=== PATIENT | male | born 1930 | race Caucasian/White ===

== ENCOUNTER 2016-08-30 12:47 | Inpatient (IN) | payer MEDICARE ==
--- NOTE | 2016-08-30 14:09 | RAD ---
HISTORY: Difficulty breathing COMPARISONS: August 14, 2016 VIEWS: 2: Frontal dual-energy and lateral views of the chest. FINDINGS: CARDIOMEDIASTINAL SILHOUETTE: The cardiothymic cells silhouette is stable. CURT: The curt are normal. PLEURA: There is a large right pleural effusion, somewhat increased from the August 14, 2016 examination. Pleural calcifications are noted. LUNG PARENCHYMA: There is confluent alveolar opacification of the right lung base ABDOMEN: The upper abdomen is clear. There is no subphrenic gas. BONES AND SOFT TISSUES: The patient is status post median sternotomy OTHER: None. IMPRESSION: 1. LARGE RIGHT PLEURAL EFFUSION WITH RIGHT BASILAR ATELECTASIS VERSUS CONSOLIDATION. 2. PLEURAL CALCIFICATIONS.
[2016-08-30 14:25] LABS: Hematocrit 43 % (42-52); Hemoglobin 13.8 g/dl (14.0-18.0); Mean Corpuscular HGB Conc 32 g/dl (31-36); Mean Corpuscular Hemoglobin 28 pg (27-31); Mean Corpuscular Volume 88 fL (80-94); Mean Platelet Volume 9 um3 (7.4-10.4); Red Cell Distribution Width 16 % (10.5-15); White Blood Count 4.7 10^3/ul (3.5-10.8)
[2016-08-30 14:41] LABS: Albumin 3.7 g/dL (3.2-5.2); BUN/Creatinine Ratio 17.5 (8-20); Calcium 9.3 mg/dL (8.6-10.3); EGFR African American 73.8 (>60); EGFR Non-African American 57.4 (>60); Globulin 3.7 g/dL (2-4); Potassium 3.9 mmol/L (3.5-5.0); Total Bilirubin 0.5 mg/dL (0.2-1.0); Total Protein 7.4 g/dL (6.4-8.9)
[2016-08-30 14:43] LABS: Troponin I 0.01 ng/mL (<0.04)
[2016-08-30 17:16] LABS: TSH (Thyroid Stimulating Horm) 1.54 mcIU/mL (0.34-5.60)
--- NOTE | 2016-08-30 17:33 | ED ---
Terra Gonzalez Anna, scribed for Waqas Cisneros MD on 08/30/16 at 1409 . Shortness of Breath - HPI Summary HPI Summary: Patient is an 85-year-old male coming to [facility] presenting with a gradual onset of worsening SOB that began a month ago. The patient is not passing out from SOB. He can walk short distances. The patients daughter said he is normally a very busy person but is unable to perform his normal range of activities. SOB is mostly when ambulating. He takes oxygen at night but during the day is fine. He had a recent follow up with corporate specialist, which included an XR of the chest that showed more fluid. He went to the doctor today and had blood work done, and they recommended that following the results of the CXR, he should come to the ED. Denies cough, fever, CP, jaw pain, edema, shoulder pain, back pain. No signs of PNA. Had some pain in shoulders the other day, but that was spontaneously resolved. Patient takes Jantoven for blood thinning. Prior records reviewed. 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 He had a thoracentesis in 12/2015 and 300 CCs were removed. CTA chest 05/2015 with no significant findings. US Gallbladder shows gallstones. Consultation Dr. Rosas 10/2014 was for chest pain and arrhythmia. He has a history of atrial fibrillation. Cardiac catheterization 2011 showed some mild irregularities. History of severe stenosis via echocardiogram. History of aortic valve replacement. Echocardiogram 2014 showed EF of 40-45%. - History of Current Complaint Chief Complaint: EDShortnessOfBreath Time Seen by Provider: 08/30/16 13:37 Hx Obtained From: Patient, Family/Cloth Examiner Hand - accompanied by daughter - Allergy/Home Medications Allergies/Adverse Reactions: Allergies Allergy/AdvReac Type Severity Reaction Status Date / Time Aspirin Allergy GI Upset Verified 12/29/15 13:14 Hydrocodone Allergy Hallucinati Verified 12/29/15 13:14 ons Lisinopril Allergy See Comment Verified 12/29/15 13:14 PMH/Surg Hx/FS Hx/Imm Hx Endocrine/Hematology History: Denies: Hx Diabetes Cardiovascular History: Reports: Hx Angina, Hx Hypertension, Hx Valvular Heart Disease - aortic valve replacement, Other Cardiovascular Problems/Disorders - valve replacement Denies: Hx Congestive Heart Failure, Hx Coronary Artery Disease, Hx Hypercholesterolemia, Hx Myocardial Infarction Respiratory History: Denies: Hx Asthma, Hx Chronic Obstructive Pulmonary Disease (COPD) History: Denies: Hx Dialysis, Hx Renal Disease Sensory History: Reports: Hx Hearing Aid - bilateral - Surgical History Surgery Procedure, Year, and Place: valve replacement-2011 Infectious Disease History: No Infectious Disease History: Denies: Traveled Outside the [place] in Last 30 Days - Family History Known Family History: Positive: Hypertension - Social History Occupation: Retired Lives: Alone Alcohol Use: Rare Substance Use Type: Reports: None Smoking Status (MU): Former Smoker Type: Pipe Review of Systems Positive: Shortness Of Breath Positive: Arthralgia - shoulder pain, resolved All Other Systems Reviewed And Are Negative: Yes Physical Exam - Summary Physical Exam Summary: General: Comfortable, pleasant, alert, cooperative HEENT: Moist mucosa, pupils equal Neck: soft, supple, no adenopathy, no edema Heart: S1, S2, RRR, 3/6 systolic murmur, no rubs, or gallops Lungs: Diminished breath sounds right base, otherwise good air movement throughout Abdominal: Softly distended but nontender Extremities: No edema, no calf tenderness Neuro: Alert and oriented x 3 Psych: Logical, coherent Triage Information Reviewed: Yes Vital Signs On Initial Exam: Initial Vitals Temp Pulse Resp BP Pulse Ox 97.0 F 76 16 138/79 95 08/30/16 13:01 08/30/16 13:01 08/30/16 13:01 08/30/16 13:01 08/30/16 13:01 Vital Signs Reviewed: Yes Diagnostics - Vital Signs Vital Signs Temp Pulse Resp BP Pulse Ox 08/30/16 13:01 97.0 F 76 16 138/79 95 - Laboratory Lab Results: Lab Results 08/30/16 08/30/16 08/30/16 Range/Units 13:32 13:32 13:32 WBC 4.7 (3.5-10.8) 10^3/ul RBC 4.90 (4.0-5.4) 10^6/ul Hgb 13.8 L (14.0-18.0) g/dl Hct 43 (42-52) % MCV 88 (80-94) fL MCH 28 (27-31) pg MCHC 32 (31-36) g/dl RDW 16 H (10.5-15) % Plt Count 248 (150-450) 10^3/ul MPV 9 (7.4-10.4) um3 Neut % (Auto) 54.1 (38-83) % Lymph % (Auto) 20.8 L (25-47) % [place] % (Auto) 19.2 H (1-9) % Eos % (Auto) 4.0 (0-6) % Baso % (Auto) 1.9 (0-2) % Absolute Neuts (auto) 2.5 (1.5-7.7) 10^3/ul Absolute Lymphs (auto) 1.0 (1.0-4.8) 10^3/ul Absolute Monos (auto) 0.9 H (0-0.8) 10^3/ul Absolute Eos (auto) 0.2 (0-0.6) 10^3/ul Absolute Basos (auto) 0.1 (0-0.2) 10^3/ul Absolute Nucleated RBC 0.01 10^3/ul Nucleated RBC % 0.1 INR (Anticoag Therapy) (0.89-1.11) Sodium 136 (133-145) mmol/L Potassium 3.9 (3.5-5.0) mmol/L Chloride 105 (101-111) mmol/L Carbon Dioxide 26 (22-32) mmol/L Anion Gap 5 (2-11) mmol/L BUN 21 (6-24) mg/dL Creatinine 1.20 H (0.67-1.17) mg/dL Est GFR ( Amer) 73.8 (>60) Est GFR (Non-Af Amer) 57.4 (>60) BUN/Creatinine Ratio 17.5 (8-20) Glucose 126 H (70-100) mg/dL Lactic Acid 2.0 (0.5-2.0) mmol/L Calcium 9.3 (8.6-10.3) mg/dL Total Bilirubin 0.50 (0.2-1.0) mg/dL AST 23 (13-39) U/L ALT 15 (7-52) U/L Alkaline Phosphatase 92 (34-104) U/L Troponin I 0.01 (<0.04) ng/mL B-Natriuretic Peptide ( - 100) pg/mL Total Protein 7.4 (6.4-8.9) g/dL Albumin 3.7 (3.2-5.2) g/dL Globulin 3.7 (2-4) g/dL Albumin/Globulin Ratio 1.0 (1-3) TSH 1.54 (0.34-5.60) mcIU/mL 08/30/16 08/30/16 Range/Units 13:32 13:32 WBC (3.5-10.8) 10^3/ul RBC (4.0-5.4) 10^6/ul Hgb (14.0-18.0) g/dl Hct (42-52) % MCV (80-94) fL MCH (27-31) pg MCHC (31-36) g/dl RDW (10.5-15) % Plt Count (150-450) 10^3/ul MPV (7.4-10.4) um3 Neut % (Auto) (38-83) % Lymph % (Auto) (25-47) % [place] % (Auto) (1-9) % Eos % (Auto) (0-6) % Baso % (Auto) (0-2) % Absolute Neuts (auto) (1.5-7.7) 10^3/ul Absolute Lymphs (auto) (1.0-4.8) 10^3/ul Absolute Monos (auto) (0-0.8) 10^3/ul Absolute Eos (auto) (0-0.6) 10^3/ul Absolute Basos (auto) (0-0.2) 10^3/ul Absolute Nucleated RBC 10^3/ul Nucleated RBC % INR (Anticoag Therapy) 2.83 H (0.89-1.11) Sodium (133-145) mmol/L Potassium (3.5-5.0) mmol/L Chloride (101-111) mmol/L Carbon Dioxide (22-32) mmol/L Anion Gap (2-11) mmol/L BUN (6-24) mg/dL Creatinine (0.67-1.17) mg/dL Est GFR ( Amer) (>60) Est GFR (Non-Af Amer) (>60) BUN/Creatinine Ratio (8-20) Glucose (70-100) mg/dL Lactic Acid (0.5-2.0) mmol/L Calcium (8.6-10.3) mg/dL Total Bilirubin (0.2-1.0) mg/dL AST (13-39) U/L ALT (7-52) U/L Alkaline Phosphatase (34-104) U/L Troponin I (<0.04) ng/mL B-Natriuretic Peptide 67 ( - 100) pg/mL Total Protein (6.4-8.9) g/dL Albumin (3.2-5.2) g/dL Globulin (2-4) g/dL Albumin/Globulin Ratio (1-3) TSH (0.34-5.60) mcIU/mL Result Diagrams: 08/30/16 13:32 08/30/16 13:32 Lab Statement: Any lab studies that have been ordered have been reviewed, and results considered in the medical decision making process. - Radiology CXR Xray Interpretation: Positive (See Comments) Radiology Interpretation Completed By: Radiologist - IMPRESSION: 1. LARGE RIGHT PLEURAL EFFUSION WITH RIGHT BASILAR ATELECTASIS VERSUS CONSOLIDATION. 2. PLEURAL CALCIFICATIONS. - EKG 12:53 Cardiac Rate: NL - 75 bpm EKG Rhythm: Sinus Rhythm ST Segment: Normal Course/Dx - Course Assessment/Plan: History of atrial fibrillation, valve replacement, pleural effusion, and over the past three weeks worsening dyspnea on exertion Etiology points to pleural effusion and fluid buildup again. On Coumadin. We will likely need to reverse INR or at least make sure INR is below 1.5 before thoracentesis. Not in any stress. Quite symptomatic at home and unable to perform usual tasks. - Diagnoses Differential Diagnosis/HQI/PQRI: Positive: COPD Exacerbation, DC, Pneumonia, Pneumothorax Provider Diagnoses: SOB (shortness of breath), Pleural effusion - Physician Notifications Discussed Care of Patient With: Dr. Guzman (hospitalist) at 14:09. Agrees to admit. Discharge - Discharge Plan Condition: Guarded Disposition: ADMITTED TO [facility] documentation as recorded by the Terra chakraborty Anna accurately reflects the service I personally performed and the decisions made by , Waqas Cisneros MD.
[2016-08-30] MEDS: Atorvastatin* 10 MG TAB PO SCH (17:56)
[2016-08-30] MEDS ORDERED: Simvastatin TAB(NF) 20 MG TAB PO SCH (18:00)
--- NOTE | 2016-08-30 22:40 | HP ---
HISTORY AND PHYSICAL: DATE OF ADMISSION: 08/30/16 PROVIDER: Licha Pascal NP ATTENDING PHYSICIAN: Dr. Hung *(report dictated by Licha Pascal NP) PRIMARY CARE PROVIDER: Dr. Sauceda. AUTO GLASS TECHNICIAN: Dr. Dumont. DIVISION DIRECTOR: Dr. Ayon. CHIEF COMPLAINT: Shortness of breath. HISTORY OF PRESENT ILLNESS: Mr. Beckett is an 85-year-old male with a past medical history of pleural effusion, status post thoracentesis x2 in 2016, which has been ruled out for malignancy; atrial fibrillation, on Coumadin; bioprosthetic aortic valve replacement; coronary artery disease; obstructive sleep apnea; and xetsmrck-ov-bbvete aortic stenosis who presents to the emergency department today with report of increasing shortness of breath over the past 6 to 8 weeks. Mr. Beckett is accompanied to the emergency department with his daughter, Sylwia, who is the healthcare proxy. Both the patient and the daughter report that he has had a slow progression of increased shortness of breath over the past month to 2 months. He is followed by Dr. Dumont, cartridge filler, and underwent a chest x-ray 2 weeks ago and was told at that time , there was no plan for thoracentesis at that time, but if he were to become shortness of breath, he should come to the emergency department. The patient reports over the past couple of days especially he feels that his activity is limited due to his shortness of breath. He denies chest pain. No orthopnea or lower extremity swelling. Denies cough. No chills, fevers, rigors. Reports good appetite and denies nausea, vomiting, diarrhea, abdominal pain. Denies any recent illnesses and reports other than this increase in shortness of breath, he has been in his normal state of health which he reports to be very active. In the emergency department, he is found to have a large right pleural effusion with right basilar atelectasis versus consolidation and pleural calcifications, which appears to be consistent with his prior chest x-rays; however, the effusion appears to be larger today. The patient is oxygenating well on room air. Does not appear to be in any acute distress. PAST MEDICAL HISTORY: 1. AFib, on Coumadin. 2. Aortic valve replacement bioprosthetic, 2011. 3. Jlavaolp-gh-ttkzmt aortic stenosis. 4. History of pleural plaques and effusions in the right lower lung, status post 2 thoracentesis in 2016 in which the cytology was negative for malignancy and showed inflammation only. 5. Hypertension. 6. Hyperlipidemia. 7. Chronic kidney disease. 8. Obstructive sleep apnea, on CPAP and oxygen at night. 9. Coronary artery disease. 10. History of neutropenia. 11. Hypothyroidism. HOME MEDICATIONS: 1. Coumadin 2 mg p.o. daily. 2. Vitamin B6 100 mg p.o. daily. 3. Flomax 0.4 mg p.o. daily. 4. Spironolactone/HCTZ 25/25 half a tablet daily. 5. Simvastatin 25 mg p.o. daily. 6. Fish oil 1000 mg p.o. daily. 7. Multivitamin 1 tab p.o. daily. 8. Metoprolol succinate 25 mg p.o. daily. 9. Synthroid 88 mcg p.o. daily. 10. Vitamin B12 500 mcg p.o. daily. 11. Calcium-D 1 tab p.o. b.i.d. ALLERGIES: ASPIRIN, HYDROCODONE, LISINOPRIL. FAMILY HISTORY: Father has a history of coronary artery disease. Type 2 diabetes in both mother and 3 siblings. SOCIAL HISTORY: Former smoker, smoking a pipe for he reports "a couple years." Occasional alcohol use. 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 He is and lives alone. He has 3 children. His daughter, Sylwia Beckett, is the healthcare proxy, number [phone]. REVIEW OF SYSTEMS: A 14-point review of systems was performed. All the pertinent positives and negatives are mentioned in the history of present illness. All the remaining systems are negative. PHYSICAL EXAMINATION GENERAL APPEARANCE: Alert and oriented x3, 85-year-old male, sitting in the emergency department stretcher, in no acute distress. Appropriate to situation. Hard of hearing. VITAL SIGNS: Temperature 97.0, heart rate 76, respirations 16, O2 sat 95% on room air, blood pressure 138/79. HEENT: Head is normocephalic, atraumatic. Pupils are equal and reactive to light. Oropharynx is clear. Moist mucous membranes. Hearing aid noted in left ear. NECK: Supple. No cervical or supraclavicular lymphadenopathy. RESPIRATORY: No accessory muscle use. Right lower lobe is diminished. Good aeration throughout otherwise. CARDIAC: S1, S2. No murmurs, rubs, or gallops appreciated. No lower extremity edema noted. 1+ DP pulses bilaterally. ABDOMEN: Distended, obese, soft, nontender. Normal bowel sounds x4. EXTREMITIES: Full range of motion in all extremities. Strength is 5/5 throughout. NEUROLOGIC: Cranial nerves II through XII are grossly intact. Sensation to lower extremities intact to light touch. PSYCH: Alert and oriented x3, appropriate to situation. LABORATORY DATA AND DIAGNOSTIC STUDIES: WBC is 4.7, RBC 4.90, Hgb 13.8, Hct 43 , MCV 88, MCH 28, MCHC 32, RDW 16, platelet count 248. INR 2.83. Sodium 136, potassium 3.9, chloride 105, carbon dioxide 26, anion gap 5, BUN 21, creatinine 1.20, glucose 126, lactic acid 2.0, calcium 9.3, total bilirubin 0.50, AST 23, ALT 15, alkaline phosphatase 92, troponin 0.01, total protein 7.4, albumin 3.7. Chest x-ray impression: 1. Large right pleural effusion with right basilar atelectasis versus consolidation. 2. Pleural calcification. EKG: Sinus rhythm with a rate of 75. In comparison to prior EKG, no acute ST changes noted. ASSESSMENT AND PLAN: Mr. Beckett is an 85-year-old male with a past medical history of recurrent right lower pleural effusion; atrial fibrillation, on Coumadin; aortic bioprosthetic valve, yylmtjwo-uc-wrnfqy aortic stenosis; chronic kidney disease; history of coronary artery disease; and obstructive sleep apnea who presents to the emergency department today with report of increasing shortness of breath over the past 1 to 2 months, worse over the last couple of days. 1. Shortness of breath. I suspect this is all secondary to right lower pleural effusion, which appears to be larger today on chest x-ray compared to the chest x- ray obtained 2 weeks ago. Plan is to hold Coumadin as INR is 2.83 , give vitamin K 2.5 mg and monitor INR. I spoke to Dr. Dumont, cartridge filler, who also follow the patient as an outpatient. She is away on vacation and asked Dr. Thurston be contacted. Plan to monitor for respiratory decompensation. At this time, the patient is on room air, appear very mildly dyspneic with exertion. Low suspicion for pneumonia or acute coronary syndrome. 2. Atrial fibrillation, on Coumadin. Currently, the patient is in sinus rhythm in the emergency department. I plan to continue the patient's home medications of metoprolol. Hold Coumadin as discussed above. The patient does not need to be bridged as he has no history of cerebrovascular accident in the past. 3. Hypertension, within normal limits. Controlled on home medication. Continue metoprolol and spironolactone/hydrochlorothiazide. 4. Hypothyroidism. Continue Synthroid. 5. Obstructive sleep apnea. Continue CPAP. 6. DVT prophylaxis. INR therapeutic on Coumadin. Plan to hold anticoagulation with a plan for thoracentesis. Encourage ambulation. 7. Code status. DNR. MOLST has been filled out and is on the chart. The daughter, Sylwia Beckett, is the healthcare proxy, . TIME SPENT: Approximately 60 minutes were spent on this admission. This case was discussed with attending physician, Dr. Hung, who agrees with the plan of care. LICHA PASCAL NP CC: Dr. Sauceda; Dr. Dumont * [phone]/[facility] [place] #: [id number] MTDD
[2016-08-31 06:44] LABS: Hematocrit 43 % (42-52); Mean Corpuscular HGB Conc 33 g/dl (31-36); Mean Corpuscular Hemoglobin 29 pg (27-31); Mean Corpuscular Volume 87 fL (80-94); Mean Platelet Volume 8 um3 (7.4-10.4); Red Blood Count 4.89 10^6/ul (4.0-5.4); Red Cell Distribution Width 15 % (10.5-15); White Blood Count 4.9 10^3/ul (3.5-10.8)
[2016-08-31 06:53] LABS: BUN/Creatinine Ratio 19.5 (8-20); Calcium 9.1 mg/dL (8.6-10.3); EGFR African American 79.1 (>60); EGFR Non-African American 61.5 (>60); Potassium 3.9 mmol/L (3.5-5.0)
[2016-08-31] MEDS: Levothyroxine TAB* 88 MCG TAB PO SCH (07:09)
[2016-08-31] MEDS: Spironolactone/HCTZ 25-25 MG* 1 TAB PO SCH (07:56)
[2016-08-31] MEDS: Metoprolol Succinate XL TAB* 25 MG PO SCH (07:57)
[2016-08-31] MEDS: Tamsulosin CAP* 0.4 MG PO SCH (07:57)
[2016-08-31] MEDS: Cyanocobalamin TAB* 500 MCG PO SCH (07:57)
--- NOTE | 2016-08-31 15:05 | PN ---
Subjective Date of Service: 08/31/16 Interval History: Patient says he is still sob. More so than usual. Objective Active Medications: Atorvastatin Calcium (Lipitor*) 10 mg PO QPM [facility] Last Admin: 08/30/16 17:56 Dose: 10 mg Cyanocobalamin (Vitamin B12 Tab*) 500 mcg PO DAILY [facility] Last Admin: 08/31/16 07:57 Dose: 500 mcg HCTZ/Spironolactone (Aldactazide 25-25*) 0.5 tab PO DAILY [facility] Last Admin: 08/31/16 07:56 Dose: 0.5 tab Levothyroxine Sodium (Synthroid Tab*) 88 mcg PO DAILY@0600 [facility] Last Admin: 08/31/16 07:09 Dose: 88 mcg Metoprolol Succinate (Toprol Xl Tab*) 25 mg PO DAILY [facility] Last Admin: 08/31/16 07:57 Dose: 25 mg Tamsulosin HCl (Flomax Cap*) 0.4 mg PO DAILY [facility] Last Admin: 08/31/16 07:57 Dose: 0.4 mg Vital Signs 08/30/16 08/30/16 08/30/16 17:13 17:35 18:06 Temperature 97.8 F 97.8 F Pulse Rate 80 78 Respiratory 20 20 20 Rate Blood Pressure 146/66 146/66 (mmHg) O2 Sat by Pulse 94 94 Oximetry 08/30/16 08/30/16 08/30/16 19:29 20:20 21:00 Temperature 97.7 F 97.4 F Pulse Rate 79 68 Respiratory 16 20 15 Rate Blood Pressure 116/75 108/63 (mmHg) O2 Sat by Pulse 95 99 Oximetry 08/31/16 08/31/16 08/31/16 02:59 07:15 08:00 Temperature 97.3 F Pulse Rate 66 68 Respiratory 16 18 18 Rate Blood Pressure 140/66 130/81 (mmHg) O2 Sat by Pulse 97 96 Oximetry 08/31/16 11:13 Temperature 97.5 F Pulse Rate 80 Respiratory Rate Blood Pressure 107/55 (mmHg) O2 Sat by Pulse 94 Oximetry Oxygen Devices in Use Now: None Appearance: Elderly gentleman sitting up in bed in NAD Eyes: No Scleral Icterus Ears/Nose/Mouth/Throat: Mucous Membranes Moist Neck: No Thyroid Enlargement, Masses Respiratory: - - Decreased breath sounds Cardiovascular: - - S1S2 robert Abdominal: NL Sounds; No Tenderness; No Distention, No Hepatosplenomegaly Lymphatic: No Cervical Adenopathy Extremities: No Clubbing, Cyanosis Skin: No Rash or Ulcers Neurological: Alert and Oriented x 3 Result Diagrams: 08/31/16 06:30 08/31/16 06:30 Additional Lab and Data: Lab Results 08/30/16 08/30/16 08/30/16 Range/Units 13:32 13:32 13:32 WBC 4.7 (3.5-10.8) 10^3/ul RBC 4.90 (4.0-5.4) 10^6/ul Hgb 13.8 L (14.0-18.0) g/dl Hct 43 (42-52) % MCV 88 (80-94) fL MCH 28 (27-31) pg MCHC 32 (31-36) g/dl RDW 16 H (10.5-15) % Plt Count 248 (150-450) 10^3/ul MPV 9 (7.4-10.4) um3 Neut % (Auto) 54.1 (38-83) % Lymph % (Auto) 20.8 L (25-47) % [place] % (Auto) 19.2 H (1-9) % Eos % (Auto) 4.0 (0-6) % Baso % (Auto) 1.9 (0-2) % Absolute Neuts (auto) 2.5 (1.5-7.7) 10^3/ul Absolute Lymphs (auto) 1.0 (1.0-4.8) 10^3/ul Absolute Monos (auto) 0.9 H (0-0.8) 10^3/ul Absolute Eos (auto) 0.2 (0-0.6) 10^3/ul Absolute Basos (auto) 0.1 (0-0.2) 10^3/ul Absolute Nucleated RBC 0.01 10^3/ul Nucleated RBC % 0.1 INR (Anticoag Therapy) (0.89-1.11) Sodium 136 (133-145) mmol/L Potassium 3.9 (3.5-5.0) mmol/L Chloride 105 (101-111) mmol/L Carbon Dioxide 26 (22-32) mmol/L Anion Gap 5 (2-11) mmol/L BUN 21 (6-24) mg/dL Creatinine 1.20 H (0.67-1.17) mg/dL Est GFR ( Amer) 73.8 (>60) Est GFR (Non-Af Amer) 57.4 (>60) BUN/Creatinine Ratio 17.5 (8-20) Glucose 126 H (70-100) mg/dL Lactic Acid 2.0 (0.5-2.0) mmol/L Calcium 9.3 (8.6-10.3) mg/dL Total Bilirubin 0.50 (0.2-1.0) mg/dL AST 23 (13-39) U/L ALT 15 (7-52) U/L Alkaline Phosphatase 92 (34-104) U/L Troponin I 0.01 (<0.04) ng/mL B-Natriuretic Peptide ( - 100) pg/mL Total Protein 7.4 (6.4-8.9) g/dL Albumin 3.7 (3.2-5.2) g/dL Globulin 3.7 (2-4) g/dL Albumin/Globulin Ratio 1.0 (1-3) TSH 1.54 (0.34-5.60) mcIU/mL 08/30/16 08/30/16 Range/Units 13:32 13:32 WBC (3.5-10.8) 10^3/ul RBC (4.0-5.4) 10^6/ul Hgb (14.0-18.0) g/dl Hct (42-52) % MCV (80-94) fL MCH (27-31) pg MCHC (31-36) g/dl RDW (10.5-15) % Plt Count (150-450) 10^3/ul MPV (7.4-10.4) um3 Neut % (Auto) (38-83) % Lymph % (Auto) (25-47) % [place] % (Auto) (1-9) % Eos % (Auto) (0-6) % Baso % (Auto) (0-2) % Absolute Neuts (auto) (1.5-7.7) 10^3/ul Absolute Lymphs (auto) (1.0-4.8) 10^3/ul Absolute Monos (auto) (0-0.8) 10^3/ul Absolute Eos (auto) (0-0.6) 10^3/ul Absolute Basos (auto) (0-0.2) 10^3/ul Absolute Nucleated RBC 10^3/ul Nucleated RBC % INR (Anticoag Therapy) 2.83 H (0.89-1.11) Sodium (133-145) mmol/L Potassium (3.5-5.0) mmol/L Chloride (101-111) mmol/L Carbon Dioxide (22-32) mmol/L Anion Gap (2-11) mmol/L BUN (6-24) mg/dL Creatinine (0.67-1.17) mg/dL Est GFR ( Amer) (>60) Est GFR (Non-Af Amer) (>60) BUN/Creatinine Ratio (8-20) Glucose (70-100) mg/dL Lactic Acid (0.5-2.0) mmol/L Calcium (8.6-10.3) mg/dL Total Bilirubin (0.2-1.0) mg/dL AST (13-39) U/L ALT (7-52) U/L Alkaline Phosphatase (34-104) U/L Troponin I (<0.04) ng/mL B-Natriuretic Peptide 67 ( - 100) pg/mL Total Protein (6.4-8.9) g/dL Albumin (3.2-5.2) g/dL Globulin (2-4) g/dL Albumin/Globulin Ratio (1-3) TSH (0.34-5.60) mcIU/mL Assess/Plan/Problems-Billing Assessment: 85 year old with know pleural effusion who presents with worsening sob and interval worsening of effusion here for monitoring and thoracentesis, - Patient Problems (1) Pleural effusion Current Visit: Yes Status: Acute Code(s): J90 - PLEURAL EFFUSION, NOT ELSEWHERE CLASSIFIED SNOMED Code(s): 52984951 Comment: Patient here for thoracentesis. Unfortunately his INR is too high and he will have to wait for the availabity of either pulmonary or IR (neither of whom are available now). (2) Atrial fibrillation Current Visit: Yes Status: Acute Code(s): I48.91 - UNSPECIFIED ATRIAL FIBRILLATION SNOMED Code(s): 50519662 Comment: Will need to reverse INR. Give Vit K. (3) Hypothyroid Current Visit: Yes Status: Acute Code(s): E03.9 - HYPOTHYROIDISM, UNSPECIFIED SNOMED Code(s): 37944239 Comment: Stable. Continue synthroid. (4) DVT prophylaxis Current Visit: Yes Status: Acute Code(s): XUZ2002 - SNOMED Code(s): 226289193 (5) HTN (hypertension) Current Visit: No Status: Chronic Code(s): I10 - ESSENTIAL (PRIMARY) HYPERTENSION SNOMED Code(s): 35473596 Comment: Adequate control. Continue current meds. (6) DNR (do not resuscitate) Current Visit: Yes Status: Acute
[2016-08-31] MEDS ORDERED: Phytonadione Oral Solution* 5 MG/25 ML UDC PO ONE (15:35)
[2016-08-31] MEDS: Atorvastatin* 10 MG TAB PO SCH (17:27)
[2016-09-01] MEDS: Levothyroxine TAB* 88 MCG TAB PO SCH (06:20)
[2016-09-01] MEDS: Metoprolol Succinate XL TAB* 25 MG PO SCH (09:31)
[2016-09-01] MEDS: Tamsulosin CAP* 0.4 MG PO SCH (09:32)
[2016-09-01] MEDS: Spironolactone/HCTZ 25-25 MG* 1 TAB PO SCH (09:32)
[2016-09-01] MEDS: Cyanocobalamin TAB* 500 MCG PO SCH (09:32)
--- NOTE | 2016-09-01 12:29 | PN ---
Subjective Date of Service: 09/01/16 Interval History: Patient seen this afternoon. Reports feeling the same, still a bit SOB. Seems to be maintaining O2 sat. Says he is not clear why he gets these effusions. Family History: Unchanged from Admission Social History: Unchanged from Admission Past Medical History: Unchanged from Admission Objective Active Medications: Atorvastatin Calcium (Lipitor*) 10 mg PO QPM [facility] Last Admin: 08/31/16 17:27 Dose: 10 mg Cyanocobalamin (Vitamin B12 Tab*) 500 mcg PO DAILY [facility] Last Admin: 09/01/16 09:32 Dose: 500 mcg HCTZ/Spironolactone (Aldactazide 25-25*) 0.5 tab PO DAILY [facility] Last Admin: 09/01/16 09:32 Dose: 0.5 tab Levothyroxine Sodium (Synthroid Tab*) 88 mcg PO DAILY@0600 [facility] Last Admin: 09/01/16 06:20 Dose: 88 mcg Metoprolol Succinate (Toprol Xl Tab*) 25 mg PO DAILY [facility] Last Admin: 09/01/16 09:31 Dose: 25 mg Tamsulosin HCl (Flomax Cap*) 0.4 mg PO DAILY [facility] Last Admin: 09/01/16 09:32 Dose: 0.4 mg Vital Signs 08/31/16 08/31/16 08/31/16 15:27 20:00 20:15 Temperature 97.4 F 97.6 F Pulse Rate 77 63 Respiratory 16 20 22 Rate Blood Pressure 110/55 129/65 (mmHg) O2 Sat by Pulse 95 96 Oximetry 08/31/16 09/01/16 09/01/16 23:32 07:12 08:00 Temperature 97.2 F 97.6 F Pulse Rate 66 70 Respiratory 16 18 Rate Blood Pressure 111/58 112/59 (mmHg) O2 Sat by Pulse 95 95 Oximetry Oxygen Devices in Use Now: None Appearance: Elderly, M, sitting in bed in NAD Eyes: No Scleral Icterus Ears/Nose/Mouth/Throat: Mucous Membranes Moist Neck: NL Appearance and Movements; NL JVP Respiratory: Symmetrical Chest Expansion and Respiratory Effort, - - Diminished BS throughout R ribeiro Cardiovascular: RRR, - - DERECK Abdominal: NL Sounds; No Tenderness; No Distention Lymphatic: No Cervical Adenopathy Extremities: No Edema Skin: No Rash or Ulcers Neurological: Alert and Oriented x 3 Result Diagrams: 08/31/16 06:30 08/31/16 06:30 Additional Lab and Data: Lab Results 08/30/16 08/30/16 08/30/16 Range/Units 13:32 13:32 13:32 WBC 4.7 (3.5-10.8) 10^3/ul RBC 4.90 (4.0-5.4) 10^6/ul Hgb 13.8 L (14.0-18.0) g/dl Hct 43 (42-52) % MCV 88 (80-94) fL MCH 28 (27-31) pg MCHC 32 (31-36) g/dl RDW 16 H (10.5-15) % Plt Count 248 (150-450) 10^3/ul MPV 9 (7.4-10.4) um3 Neut % (Auto) 54.1 (38-83) % Lymph % (Auto) 20.8 L (25-47) % [place] % (Auto) 19.2 H (1-9) % Eos % (Auto) 4.0 (0-6) % Baso % (Auto) 1.9 (0-2) % Absolute Neuts (auto) 2.5 (1.5-7.7) 10^3/ul Absolute Lymphs (auto) 1.0 (1.0-4.8) 10^3/ul Absolute Monos (auto) 0.9 H (0-0.8) 10^3/ul Absolute Eos (auto) 0.2 (0-0.6) 10^3/ul Absolute Basos (auto) 0.1 (0-0.2) 10^3/ul Absolute Nucleated RBC 0.01 10^3/ul Nucleated RBC % 0.1 INR (Anticoag Therapy) (0.89-1.11) Sodium 136 (133-145) mmol/L Potassium 3.9 (3.5-5.0) mmol/L Chloride 105 (101-111) mmol/L Carbon Dioxide 26 (22-32) mmol/L Anion Gap 5 (2-11) mmol/L BUN 21 (6-24) mg/dL Creatinine 1.20 H (0.67-1.17) mg/dL Est GFR ( Amer) 73.8 (>60) Est GFR (Non-Af Amer) 57.4 (>60) BUN/Creatinine Ratio 17.5 (8-20) Glucose 126 H (70-100) mg/dL Lactic Acid 2.0 (0.5-2.0) mmol/L Calcium 9.3 (8.6-10.3) mg/dL Total Bilirubin 0.50 (0.2-1.0) mg/dL AST 23 (13-39) U/L ALT 15 (7-52) U/L Alkaline Phosphatase 92 (34-104) U/L Troponin I 0.01 (<0.04) ng/mL B-Natriuretic Peptide ( - 100) pg/mL Total Protein 7.4 (6.4-8.9) g/dL Albumin 3.7 (3.2-5.2) g/dL Globulin 3.7 (2-4) g/dL Albumin/Globulin Ratio 1.0 (1-3) TSH 1.54 (0.34-5.60) mcIU/mL 08/30/16 08/30/16 Range/Units 13:32 13:32 WBC (3.5-10.8) 10^3/ul RBC (4.0-5.4) 10^6/ul Hgb (14.0-18.0) g/dl Hct (42-52) % MCV (80-94) fL MCH (27-31) pg MCHC (31-36) g/dl RDW (10.5-15) % Plt Count (150-450) 10^3/ul MPV (7.4-10.4) um3 Neut % (Auto) (38-83) % Lymph % (Auto) (25-47) % [place] % (Auto) (1-9) % Eos % (Auto) (0-6) % Baso % (Auto) (0-2) % Absolute Neuts (auto) (1.5-7.7) 10^3/ul Absolute Lymphs (auto) (1.0-4.8) 10^3/ul Absolute Monos (auto) (0-0.8) 10^3/ul Absolute Eos (auto) (0-0.6) 10^3/ul Absolute Basos (auto) (0-0.2) 10^3/ul Absolute Nucleated RBC 10^3/ul Nucleated RBC % INR (Anticoag Therapy) 2.83 H (0.89-1.11) Sodium (133-145) mmol/L Potassium (3.5-5.0) mmol/L Chloride (101-111) mmol/L Carbon Dioxide (22-32) mmol/L Anion Gap (2-11) mmol/L BUN (6-24) mg/dL Creatinine (0.67-1.17) mg/dL Est GFR ( Amer) (>60) Est GFR (Non-Af Amer) (>60) BUN/Creatinine Ratio (8-20) Glucose (70-100) mg/dL Lactic Acid (0.5-2.0) mmol/L Calcium (8.6-10.3) mg/dL Total Bilirubin (0.2-1.0) mg/dL AST (13-39) U/L ALT (7-52) U/L Alkaline Phosphatase (34-104) U/L Troponin I (<0.04) ng/mL B-Natriuretic Peptide 67 ( - 100) pg/mL Total Protein (6.4-8.9) g/dL Albumin (3.2-5.2) g/dL Globulin (2-4) g/dL Albumin/Globulin Ratio (1-3) TSH (0.34-5.60) mcIU/mL Assess/Plan/Problems-Billing Assessment: 85 year old with known recurrent pleural effusion who presents with worsening sob and interval worsening of effusion here for monitoring and thoracentesis, - Patient Problems (1) Pleural effusion Current Visit: Yes Comment: Patient here for thoracentesis. INR trending down , will recheck in AM. Plan for thoracentesis by IR tomorrow. (2) Atrial fibrillation Current Visit: Yes Comment: Continue Metoprolol. INR reversal as above (3) Hypothyroid Current Visit: Yes Comment: Continue synthroid. (4) HTN (hypertension) Current Visit: No Comment: Adequate control. Continue current meds. (5) DVT prophylaxis Current Visit: Yes Comment: Ambulating
[2016-09-01] MEDS: Atorvastatin* 10 MG TAB PO SCH (17:41)
[2016-09-02] MEDS: Levothyroxine TAB* 88 MCG TAB PO SCH (06:34)
[2016-09-02] MEDS: Metoprolol Succinate XL TAB* 25 MG PO SCH (08:20)
[2016-09-02] MEDS: Cyanocobalamin TAB* 500 MCG PO SCH (08:20)
[2016-09-02] MEDS: Spironolactone/HCTZ 25-25 MG* 1 TAB PO SCH (08:20)
[2016-09-02] MEDS: Tamsulosin CAP* 0.4 MG PO SCH (08:20)
[2016-09-02 10:48] VITALS: BP 109/63
--- NOTE | 2016-09-02 10:59 | RAD ---
CPT II Codes: 6100F INDICATION: Right-sided pleural effusion and dyspnea COMPARISON: Recent chest x-ray. PROCEDURE NOTE AND IMAGING FINDINGS: The benefits of the and risks of procedure explained to the patient. The patient consented of the exam. The patient was brought to the ultrasound suite and multiple images of the right hemithorax were obtained. There was a large and echogenically heterogeneous pleural effusion present. The site was marked. A formal time out was performed before beginning the procedure. The patient was prepped and draped in the usual sterile fashion. The patient?s posterior chest wall was anesthetized with 1% lidocaine. A small skin ted was made to allow placement of the thoracentesis needle and catheter. Approximately 1175 mL of serosanguineous fluid was aspirated. The patient tolerated the procedure without incident. IMPRESSION: Uncomplicated thoracentesis as described in the body of the report.
--- NOTE | 2016-09-02 11:49 | RAD ---
INDICATION: Thoracentesis COMPARISON: August 30, 2016 TECHNIQUE: An AP portable view obtained at 1047 is submitted. FINDINGS: Bones/Soft Tissues: There are no acute bony findings. Sternotomy Cardiomediastinal: The cardiac silhouette appears mildly prominent. Lungs: The examination is expiratory with vascular crowding. There is slightly less pleural fluid in the right chest with improved aeration in the base. Pleura: Extensive pleural plaque formation. Pleural fluid in right chest with loculation. Other: None IMPRESSION: EXTENSIVE PLEURAL DISEASE WITH LOCULATED PLEURAL FLUID AND CALCIFIC PLAQUES. NO PNEUMOTHORAX POST THORACENTESIS. MILDLY IMPROVED AERATION RIGHT LUNG BASE
--- NOTE | 2016-09-02 13:58 | DCNOTE ---
Patient seen this morning after thora and again in the afternoon. Feels SOB has improved. Over 1L of bloody serosanguinous fluid removed. On exam, improved aeration on auscultation of R lung Post-procedure x-ray with persistent plaques, no PTX Plan to discharge home today. Will need to f/u with Dr. Sauceda and Dr. Dumont. Will hold coumadin for now.
[2016-09-02] MEDS: Atorvastatin* 10 MG TAB PO SCH (17:31)
--- NOTE | 2016-09-03 01:37 | DS ---
DISCHARGE SUMMARY: DATE OF ADMISSION: 08/30/16 DATE OF DISCHARGE: 09/02/16 PRIMARY CARE PHYSICIAN: Dr. Sauceda. PRINCIPAL DISCHARGE DIAGNOSIS: Recurrent right bloody pleural effusion. SECONDARY DIAGNOSES: 1. Atrial fibrillation, on Coumadin. 2. Bioprosthetic aortic valve replacement. 3. Pleural plaque. 4. Hypertension. 5. Hyperlipidemia. 6. Chronic kidney disease. 7. Obstructive sleep apnea, on CPAP. 8. Coronary artery disease. 9. Hypothyroidism. STUDIES DONE DURING HOSPITALIZATION: Chest x-ray, impression: Large right pleural effusion with right basilar atelectasis versus consolidation, pleural calcification. Ultrasound thoracentesis, impression: Uncomplicated thoracentesis, approximately 1175 mL of serosanguineous fluid was aspirated. The patient tolerated the procedure without incident. Post-thoracentesis x-ray, impression: Extensive pleural disease with loculated pleural fluid and calcific plaques. No pneumothorax post thoracentesis. Mildly improved aeration at the right lung base. DISCHARGE MEDICATION REGIMEN: 1. [place]-3 fatty acids 1000 mg by mouth daily. 2. Metoprolol succinate 25 mg by mouth daily. 3. Synthroid 88 mcg by mouth daily. 4. Vitamin B12 500 mg by mouth daily. 5. Tamsulosin 0.4 mg by mouth daily. 6. Spironolactone/hydrochlorothiazide 25/25, 0.5 tablets by mouth daily. 7. Simvastatin 25 mg by mouth nightly. HISTORY OF PRESENT ILLNESS AND HOSPITAL SUMMARY: Please see the full history and physical by Abby Babin NP for full details. Briefly, Ms. Beckett is an 85-year-old man with past medical history as above, who presents to the hospital with increasing shortness of breath over the past 6 to 8 weeks. The patient was noted to have increasing effusion on chest x-ray and he was referred to the hospital for further evaluation. The patient had an elevated INR on admission in the hospital. He was given vitamin K and this was subsequently reversed. On 09/02/16, he underwent a thoracentesis, which as described above, over 1 L of bloody serosanguineous fluid was removed. This was sent for cytology. However, his previous cytology was negative for any malignancy. This was including the effusion and the biopsy of the pleural lining. The patient had improvement in his shortness of breath after the procedure. Postprocedure chest x-ray showed no pneumothorax. It did show his extensive plaques and some possibly residual loculated fluid collections. This could be followed up further as an outpatient. Cytology is pending at this time. His effusions may be due to these plaques, which he has had asbestos exposure in the past. Often times malignancy is not picked up on the initial thoracentesis, so there could be a possible change with the cytology pending. He will need to follow up with Dr. Sauceda and Dr. Dumont and the decision can be made at that time specifically if the cytology is negative for possible surgical referral to Dr. Kay for potential VATS and pleural biopsy. This was explained to the patient and his daughter. We will also be holding the patient's Coumadin for now on discharge. He can discuss this further with Dr. Sauceda if and when to restart the Coumadin. TIME SPENT: Total time spent on this discharge 45 minutes. This is a summary of the hospitalization. Please see the full medical record for further details. CC: Dr. Sauceda; Dr. Dumont* [id number]/[facility] #: [id number] [facility]
== END 2016-09-02 18:15 | disposition home or self-care (01) | DRG 188 ==
LOC: ED 12:47 → MED 15:33 → OBSVTOIN 09-01 15:54 → UNDODISIN 09-02 11:15
PROVIDERS: ADMIT Internal Medicine; ATTEND Hospitalist
PROC: 0W993ZZ Drainage of Right Pleural Cavity, Percutaneous Approach (ICD-10-PCS; principal; 2016-09-02)
DX: J90 Pleural effusion, not elsewhere classified (principal); I48.91 Unspecified atrial fibrillation; I35.0 Nonrheumatic aortic (valve) stenosis; Z88.6 Allergy status to analgesic agent; Z88.8 Allergy status to other drugs, medicaments and biological substances; Z88.5 Allergy status to narcotic agent; Z95.2 Presence of prosthetic heart valve; Z87.891 Personal history of nicotine dependence; J92.9 Pleural plaque without asbestos; E78.5 Hyperlipidemia, unspecified; N18.9 Chronic kidney disease, unspecified; I12.9 Hypertensive chronic kidney disease with stage 1 through stage 4 chronic kidney disease, or unspecified chronic kidney disease; G47.33 Obstructive sleep apnea (adult) (pediatric); I25.10 Atherosclerotic heart disease of native coronary artery without angina pectoris; E03.9 Hypothyroidism, unspecified; Z82.49 Family history of ischemic heart disease and other diseases of the circulatory system; Z83.3 Family history of diabetes mellitus; Z66 Do not resuscitate
CPT/HCPCS: 32555; 36415; 71010; 71020; 80048; 80053; 83605; 83880; 84443; 84484; 85025; 85610; 87040; 88112; 93005; 94660; A9270-GY; G0378

== ENCOUNTER 2016-09-26 05:59 | Inpatient (IN) | payer MEDICARE ==
--- NOTE | 2016-09-24 20:19 | HP ---
ADMISSION HISTORY AND PHYSICAL: DATE OF ADMISSION: 09/26/16 ATTENDING SURGEON: Semaj Kay MD (dictated by MANUEL Ortiz) CHIEF COMPLAINT: Recurrent right pleural effusion. HISTORY OF PRESENT ILLNESS: This is an 85-year-old male with multiple medical problems, chronically anticoagulated for atrial fibrillation who in the spring of 2015 was experiencing shortness of breath and found to have a pleural effusion. He first underwent thoracentesis by Dr. Dumont on 12/06/15 with cytology apparently being benign at that time. Fluid was bloody. He was also noted to have multiple pleural plaques and pleural nodular thickening on subsequent studies. He has undergone a total of 3 thoracenteses, the most recent from 09/02/16, at which time 1200 mL bloody fluid was drained. Pathology again was negative for malignant cells. The patient states that at the present time he became short of breath with even minimal to moderate exertion such as walking from the office out to his car. A followup chest x-ray on 09/13/16 showed a moderate sized right pleural effusion with calcified pleural plaquing and pleural nodular thickening consistent with previous studies. His past history includes minimal smoking (an occasional pipe, but quit over 30 years ago). 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 The patient is not specifically aware of this plastic exposure, though it is felt likely by his family members. The patient was sent for referral and seen in the office by Dr. Kay on . Dr. Kay has reviewed his previous workup and studies. Options include further diagnostic work up including VATS for pleural biopsies with the possibility of mechanical pleurodesis at that time as well. The other option would be insertion of the Pleurx catheter for symptomatic relief. The patient understands the indications for surgery, the risks, benefits and alternatives as well as the expected perioperative course and hospital stay. He would like to proceed as scheduled with right thoracoscopy (VATS) with biopsies. PAST MEDICAL HISTORY: 1. Recurrent pleural effusion (see above). 2. Hypertension. 3. Paroxysmal atrial fibrillation and atrial flutter (on chronic anticoagulation; anticoagulation has been off since 09/10/16 in preparation for further workup and/or interventions). 4. Hyperlipidemia. 5. Chronic kidney disease. 6. Coronary artery disease. 7. Aortic valvular disease (status post bioprosthetic aortic valve replacement with Maze procedure, ablation in 2012). 8. He is treated for hypertension. 9. Obstructive sleep apnea (uses CPAP at h.s. with 2 L per minute O2). 10. Macular degeneration. 11. Neutropenia (his white blood cell counts have generally been in the 4 to 6 range). His chart history also indicates cholelithiasis, though the patient and family members are unaware of this. PAST SURGICAL HISTORY: Previous surgeries include: 1. Bilateral cataract surgery. 2. Appendectomy remotely. 3. Hydrocelectomy remotely. CURRENT MEDICATIONS: 1. O2 of 2 L at h.s. 2. Ranitidine 150 mg daily. 3. Warfarin 4 mg daily (stopped as of 09/10/16). 4. Levothyroxine 88 mcg once daily. 5. Metoprolol succinate ER 25 mg one half tablet once daily. 6. Spironolactone-hydrochlorothiazide 25-25 one half tablet once daily. 7. Simvastatin 20 mg q.p.m. 8. Flomax 0.4 mg daily. 9. AREDS 2 b.i.d. 10. Multivitamin daily. 11. Vitamin B6 at 100 mg daily. 12. Vitamin B12 at 500 mcg daily. 13. Fish oil 1000 mg daily. 14. Calcium with D 600-200 b.i.d. DRUG ALLERGIES: ASPIRIN (gastritis), HYDROCODONE (hallucinations), LISINOPRIL ( suspect for neutropenia) FAMILY HISTORY: Noncontributory in terms of anesthesia problems, bleeding or clotting disorders. SOCIAL HISTORY: The patient is . He lives alone. His daughter and girlfriend accompany him today. He was previously employed as a repairman and helped to build a local [employer]. He occasionally smoked pipe many years ago but has not smoked in at least the past 30 years. He drinks less than one alcoholic drink per week. REVIEW OF SYSTEMS: General: No other constitutional symptoms or acute illnesses other than described in the HPI. He states that his weight has been stable. Cardiovascular: He was seen recently by Dr. You and is followed regularly by Dr. Ayon. Recent EKG in their office showed normal sinus rhythm with PAC's. See separate attached note. Respiratory: As above. He denies significant cough. GI: No significant upper GI symptoms. No significant lower GI symptoms. : Apparently has a history of BPH. No additions. Endocrine: No diabetes, he is treated for hypothyroidism. Neuropsych: No problems reported. He does use bilateral hearing aids. PHYSICAL EXAMINATION GENERAL: Well-nourished, well-developed elderly male in no acute distress. VITAL SIGNS: Height 68 inches, weight 175 pounds. Temperature 96.8, blood pressure 146/88, pulse 64, respirations 16. HEENT: Pupils equal, round, reactive. EOMs intact. No conjunctival pallor or scleral icterus. Oropharynx: He has a partial lower bridge, remaining teeth in fair to good repair. No intraoral lesions. He has bilateral hearing aids. NECK: No lymphadenopathy, thyromegaly or masses. LUNGS: Upper ribeiro are clear. There are a few basilar crackles on the right. Left base fairly clear. HEART: Regular rate and rhythm. There is a soft systolic murmur heard throughout the precordium. He is status post median sternotomy. ABDOMEN: Soft, nontender to palpation. No palpable masses or organomegaly. No palpable inguinal hernias. GENITALIA: Not done. RECTAL: Not done. BACK: No spinous process or CVA tenderness. EXTREMITIES: No edema. SKIN: Warm and dry. No suspicious rashes or lesions noted. NEUROLOGIC: Grossly intact. IMPRESSION: Recurrent right pleural effusion. PLAN: Right thoracoscopy (VATS) with biopsies. MANUEL CONNELL ' CC: Dr. Sauceda; Dr. Dumont; [facility] * [id number]/[facility] #: [id number] [facility]
[~2016-09-26 05:59] MED LIST: Morphine INJ* 2 MG/ML 1 ML CARPUJECT IV PRN; PROCHLORPERAZINE INJ 5 MG/ML 2 ML VIAL IV PRN; fentaNYL* 50 MCG/ML 2 ML VIAL (100 MCG VIAL) IV PRN
[2016-09-26] MEDS ORDERED: Buffered Lidocaine 1% SYR 3ML* 3 ML/SYR SYRINGE INTRADERM ONE (06:00)
[2016-09-26] MEDS ORDERED: Famotidine IV* 10 MG/ML 2 ML (20 mg) IV ONE (06:00)
[2016-09-26] MEDS ORDERED: ceFAZolin 2 GM PREMIX (*) 2 GM/50 ML BAG IVPB ONE (06:23)
[2016-09-26] MEDS ORDERED: Famotidine IV* 10 MG/ML 2 ML (20 mg) ONE (06:23)
[2016-09-26] MEDS ORDERED: Heparin VIAL(*) 5000 UNITS/ML VIAL (FIVE THOUSAND) ONE (06:23)
[2016-09-26] MEDS ORDERED: Buffered Lidocaine 1% SYR 3ML* 3 ML/SYR SYRINGE ONE (06:23)
[2016-09-26] MEDS ORDERED: Bupivacaine 0.25% EPI 200,000* 30 ML SDV ONE (07:21)
[2016-09-26] MEDS ORDERED: fentaNYL* 50 MCG/ML 5 ML VIAL (250 MCG VIAL) ONE (07:32)
[2016-09-26] MEDS ORDERED: Atracurium* 10 MG/ML 10 ML VIAL ONE (07:32)
[2016-09-26] MEDS ORDERED: Midazolam* 1 MG/ML 2 ML VIAL (2 MG) ONE (07:32)
[2016-09-26] MEDS ORDERED: KETAMINE HCL* 50 MG/ML 10 ML VIAL ONE (07:32)
[2016-09-26] MEDS ORDERED: Propofol* 10 MG/ML 20 ML BTL IV PUSH ONE (09:06)
[2016-09-26] MEDS ORDERED: Dexamethasone IV* 4 MG/ML 1 ML (4 MG) ONE (09:06)
[2016-09-26] MEDS ORDERED: Ondansetron INJ* 2 MG/ML VIAL ONE (09:06)
[2016-09-26] MEDS ORDERED: Glycopyrrolate IV* 0.2 MG/ML 1 ML VIAL ONE (09:06)
[2016-09-26] MEDS ORDERED: Metoprolol Tartrate IV* 1 MG/ML 5 ML VIAL ONE (09:06)
[2016-09-26] MEDS ORDERED: Lidocaine 2% PF* 10 ML AMP ONE (09:06)
[2016-09-26] MEDS ORDERED: Neostigmine Methylsulfate* 2 MG/2 ML SYRINGE ONE (09:06)
[2016-09-26] MEDS ORDERED: Phenylephrine INJ* 10 MG/ML 1 ML VIAL (10 MG) ONE (09:10)
[2016-09-26] MEDS ORDERED: Ondansetron INJ* 2 MG/ML VIAL IV PRN (09:41)
[2016-09-26] MEDS ORDERED: HYDROmorphone INJ* 1 MG/ML CARPUJECT SYRINGE IV PRN (09:41)
--- NOTE | 2016-09-26 10:28 | RAD ---
Indication: Status post video assisted fluoroscopy. Single frontal view of the chest performed at 0950 hours was reviewed. Comparison is made with previous exam dated September 13, 2016. Patient is status post transsternal thoracotomy. Right chest tube is in place. Extensive subcutaneous emphysema is noted. Consolidation and atelectasis in the right upper lobe and right base is noted. Pleural fluid appears to be improved. Left lung field demonstrates pleural plaques. The right chest tube appears in place. IMPRESSION: POSTOPERATIVE CHANGES WITH DECREASING LOCULATED PLEURAL EFFUSION. THIS LIKELY RIGHT UPPER LOBE AND RIGHT BASILAR ATELECTASIS NOTED. PLEURAL PLAQUE IN THE LEFT HEMITHORAX IS NOTED.
--- NOTE | 2016-09-26 12:26 | OP ---
DATE OF OPERATION: 09/26/16 - ROOM #ICU-05 DATE OF : 28 SURGEON: Semaj Kay MD VP ANALYTICS: None. ANESTHESIOLOGIST: Dr. Madrigal. ANESTHESIA: General anesthetic, local infiltration. PRE-OP DIAGNOSIS: Chronic right pleural effusion. POST-OP DIAGNOSIS: Chronic right pleural effusion. OPERATIVE PROCEDURE: Right video thoracoscopy with pleural biopsies. DESCRIPTION OF PROCEDURE: The patient was supine on the operative table. After adequate general anesthetic, compression stockings, Mary Hugger warmer, and intravenous antibiotics, double-lumen intubation was carried out. Arterial line was placed by the anesthesiologist as well. Fiberoptic bronchoscopy was carried out down into the right main stem. Positioning of the tube was confirmed. There were white mucoid secretions down in the right upper lobe bronchus, these were suctioned out; otherwise, it looked normal. He was then placed in the lateral decubitus position with the right chest upward. Everything was appropriately padded, positioned, he was secured to the table. Axillary roll was then placed. The right chest was prepped with antiseptic and draped in a sterile fashion. In the midaxillary line, approximately 2-cm incision was created at approximately the eighth interspace and the pleural space was entered. Digital palpation reveals free space and the scope was then inserted. There was fibrinous and exudative debris, hemosiderin laden, as well as bloody fluid. The bloody fluid was suctioned out. Additional cannulae, 5 mm anterior and posterior, placed and all of this fibrinous material was picked out, some was sent for culture, some was sent for pathology. The operative field was irrigated, free fluid was suctioned. Posteriorly, there were several nodules in the pleura. They actually appeared to be subpleural and the largest ones were maybe 2 cm across and were up in the mid chest. In the lower posterior chest, there were several smaller ones. Four of these nodules had pieces taken for biopsy and these were sent in formalin. Irrigation was again carried out. A 36-Slovak chest tube was placed and sutured to the skin with 2- 0 Prolene. The additional skin incisions were closed with 5-0 Vicryl followed by Steri-Strips. Gauze dressing was placed. He was brought to Recovery in good condition. No complications. Drain was 36-Slovak chest tube. Sponge, instruments counts correct. Estimated blood loss was 30 mL. CC: Dr. Semaj Kay; Dr. Pedor Sauceda; Dr. Renae Dumont; Dr. Jim Ayon* [id number]/[facility] #: [id number] [facility]
--- NOTE | 2016-09-26 16:16 | CONS ---
MEDICAL CONSULTATION REPORT: DATE OF CONSULT: 09/26/16 REQUESTING PROVIDER: Dr. Kay. PRIMARY CARE PROVIDER: Dr. Pedro Sauceda. CONSULTING PROVIDER: MANUEL Aponte. SUPERVISING PHYSICIAN: Dr. Dionne Mullins. CHIEF COMPLAINT: Medical management status post VATS for recurrent right pleural effusion. HISTORY OF PRESENT ILLNESS: This is an 85-year-old gentleman with a history of atrial fibrillation; hypertension; hyperlipidemia; aortic stenosis, status post aortic valve replacement; obstructive sleep apnea; macular degeneration; questionable history of coronary artery disease, who has been struggling with a recurrent right pleural effusion for about 9 months now. The patient first was symptomatic in December of 2015, had a notable right-sided pleural effusion and underwent thoracentesis by Dr. Dumont. Cytology was benign at that time. The patient has required two other thoracentesis procedures. Since that time, cytology has been benign on each of those occasions. There have been some pleural plaques and nodular thickening appreciated on prior imaging which brings up the concern for malignancy. The patient underwent VATS procedure without pleurodesis and biopsy of a pleural plaque by Dr. Kay earlier today. Dr. Kay has requested medical consult in this case for co-management during his hospital stay. The patient states that he is feeling quite well postoperatively. He admits to just minimal pain. Denies any significant dyspnea. Denies nausea or vomiting. PAST MEDICAL HISTORY: 1. Atrial fibrillation - chronically anticoagulated on Coumadin, held preoperatively. 2. Hypertension. 3. Hyperlipidemia. 4. Reported history of coronary artery disease. Cardiac catheterization from September 2011 showed some mild luminal irregularities, but no definitive obstructive disease. The patient has no history of MS or PCI. 5. Aortic stenosis, status post AVR. 6. Obstructive sleep apnea, compliant with CPAP at night. 7. Macular degeneration. PAST SURGICAL HISTORY: 1. Cataract extraction. 2. Appendectomy. 3. Aortic valve replacement. HOME MEDICATIONS: 1. Calcium and vitamin D supplementation 1 tablet p.o. twice daily. 2. Vitamin B12 500 mcg p.o. daily. 3. Levothyroxine 88 mcg p.o. daily. 4. Metoprolol succinate 25 mg p.o. daily. 5. Multivitamin with iron 1 tablet p.o. daily. 6. Fish oil 1000 mg p.o. daily. 7. Ranitidine 150 mg p.o. daily. 8. Simvastatin 25 mg p.o. daily. 9. Spironolactone/hydrochlorothiazide 25/25 half a tablet p.o. daily. 10. Flomax 0.4 mg p.o. in the evening. 11. Of note, the patient is chronically anticoagulated with Coumadin, but he has been holding his Coumadin since his last hospital admission at the beginning of this month. SOCIAL HISTORY: The patient has questionable history of asbestos exposure. The patient currently lives alone. He is a . He occasionally smoked pipe in the past, but quite some time ago and no regular alcohol consumption. REVIEW OF SYSTEMS: As noted above in HPI and otherwise negative. PHYSICAL EXAM: Recent vital signs: Temperature 96.7 degrees Fahrenheit, heart rate 82 beats per minute, respiratory rate 18 per minute, blood pressure 149/75 mmHg, and oxygen saturation at 93% on nasal cannula, I believe, at 2 L. General : This is a very pleasant elderly male, in no acute distress, sitting upright in hospital bed. HEENT: Head is normocephalic, atraumatic. Mucous membranes pink and moist. Cardiovascular: The patient has a seemingly irregular rhythm. He does have a significant murmur, possibly a 3-4/6 best heard at his right sternal border. Respiratory: The patient has notable bubbling sounds with inspiration in the right lower lung ribeiro with the chest tube in place in that area. The left lung ribeiro are clear to auscultation. Abdomen: Abdomen is soft and nontender to palpation. Extremities: No lower extremity edema appreciated. Skin: Limited exam shows no concerning rashes or lesions. DIAGNOSTIC STUDIES/LAB DATA: Preop labs reviewed from 09/24/16 which included a CBC and a CMP which were both unremarkable. 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 His bioprosthetic aortic valve appeared to be functioning normally at that time. ASSESSMENT AND PLAN: This is an 85-year-old gentleman with a history of atrial fibrillation, chronically anticoagulated on Coumadin; hypertension; hyperlipidemia; aortic stenosis, status post aortic valve replacement; obstructive sleep apnea; macular degeneration, who underwent a video-assisted thoracoscopic surgery procedure and pleural biopsy by Dr. Kay earlier today. Hospitalists are consulted for co-management. 1. Status post video-assisted thoracoscopic surgery and pleural biopsy - chest tube in place. Surgical management per Dr. Kay and General Surgery group. 2. Atrial fibrillation - discussed anticoagulation with Dr. Kay. He is currently having a significant amount of bloody drainage from his chest tube and Dr. Kay would like to see the output decreased prior to resuming anticoagulation. He will be placed on prophylactic doses of heparin 5000 units q.8 hours, but avoid fully anticoagulating until bloody drainage volume decreases over the next couple of days. 3. Hypertension - continue his metoprolol, but will hold his hydrochlorothiazide at this time. 4. Hyperlipidemia - continue statin. 5. Aortic stenosis, status post aortic valve replacement - last echo shows normal functioning bioprosthetic valve. The patient does have a loud murmur, is otherwise asymptomatic. No significant stenosis appreciated on last echo. 6. Obstructive sleep apnea - continue CPAP at night. 7. Code status - the patient is DNR. 8. DVT prophylaxis - the patient will be placed on heparin 5000 units q.8 hours and SCDs for DVT prophylaxis. 9. Healthcare proxy is listed as the patient's daughter, Leigh Wilkerson. DISPOSITION: Hospitalist group will continue to follow along with Surgery on this patient. Disposition per attending surgeon. MANUEL APONTE CC: Dr. Sauceda * [id number]/CPS #: [id number] YASIR
[2016-09-26] MEDS: Heparin VIAL(*) 5000 UNITS/ML VIAL (FIVE THOUSAND) SUBCUT SCH ×2 (16:55→23:01)
[2016-09-26] MEDS: Tamsulosin CAP* 0.4 MG PO SCH (18:05)
[2016-09-26] MEDS: Atorvastatin* 10 MG TAB PO SCH (18:05)
[2016-09-26] MEDS: Docusate CAP* 100 MG PO SCH (23:01)
[2016-09-27] MEDS: Heparin VIAL(*) 5000 UNITS/ML VIAL (FIVE THOUSAND) SUBCUT SCH ×3 (06:43→21:17)
[2016-09-27] MEDS: Omeprazole CAP* 20 MG PO SCH (06:43)
[2016-09-27] MEDS: Levothyroxine TAB* 88 MCG TAB PO SCH (06:43)
[2016-09-27 06:45] LABS: Hematocrit 39 % (42-52); Hemoglobin 13.1 g/dl (14.0-18.0); Mean Corpuscular HGB Conc 33 g/dl (31-36); Mean Corpuscular Hemoglobin 29 pg (27-31); Mean Corpuscular Volume 85 fL (80-94); Mean Platelet Volume 9 um3 (7.4-10.4); Red Blood Count 4.61 10^6/ul (4.0-5.4); Red Cell Distribution Width 15 % (10.5-15); White Blood Count 7.1 10^3/ul (3.5-10.8)
[2016-09-27 07:07] LABS: BUN/Creatinine Ratio 17.6 (8-20); Calcium 8.8 mg/dL (8.6-10.3); EGFR African American 83.4 (>60); EGFR Non-African American 64.8 (>60); Potassium 4.1 mmol/L (3.5-5.0)
--- NOTE | 2016-09-27 08:14 | RAD ---
INDICATION: Status post chest tube placement COMPARISON: Chest x-ray dated 09/26/2016 TECHNIQUE: Single AP portable view of the chest was obtained. FINDINGS: Image quality is compromised due to the relative inferiority of a portable chest x-ray. The right-sided chest tube with the tip overlying the right lung apex is unchanged in position from the previous chest x-ray. Subcutaneous gas overlying the right hemithorax laterally is similar in appearance to the previous chest x-ray. There is persistent patchy density obscuring the right lung not significantly changed since the most recent chest x-ray. Patchy density is seen obscuring the left lung as well but there is improved aeration on the left. There is persistent cardiomegaly similar in appearance to the previous chest x-ray. Visualized bones are normal for the patient's age. IMPRESSION: Overall there is been no substantial change in the appearance of the chest x-ray when compared to the previous day with the patient's right-sided chest tube in appropriate position.
[2016-09-27] MEDS: Docusate CAP* 100 MG PO SCH ×2 (08:44→19:57)
[2016-09-27] MEDS: Metoprolol Succinate XL TAB* 25 MG PO SCH (08:44)
[2016-09-27] MEDS ORDERED: Spironolactone/HCTZ 25-25 MG* 1 TAB PO SCH (09:00)
[2016-09-27] MEDS: oxyCODONE/Acetamin 5/325 MG* TAB PO PRN ×2 (11:54→17:07)
--- NOTE | 2016-09-27 14:16 | PN ---
Subjective Date of Service: 09/27/16 Interval History: Pt is feeling well. He denies any significant pain at the chest tube site. He denies any SOB. Last night he was having a significantly difficult time urinating. He states that at home he will get up to urinate 2-3x/night and urinating is difficult. He states he has as slow difficult to start stream. Objective Active Medications: Acetaminophen (Tylenol Tab*) 650 mg PO Q4H PRN PRN Reason: Pain Or Temperature >101 F Atorvastatin Calcium (Lipitor*) 10 mg PO QPM [facility] Last Admin: 09/26/16 18:05 Dose: 10 mg Docusate Sodium (Colace Cap*) 100 mg PO BID [facility] Last Admin: 09/27/16 08:44 Dose: 100 mg Heparin Sodium (Porcine) (Heparin Vial(*)) 5,000 units SUBCUT Q8HR [facility] Last Admin: 09/27/16 06:43 Dose: 5,000 units Hydromorphone HCl (Dilaudid Iv*) 0.5 mg IV Q1H PRN PRN Reason: PAIN - SEVERE Lactated Ringer's (Lactated Ringers 1000 Ml Bag*) 1,000 mls @ 0 mls/hr IV .per rate [facility] PRN Reason: KVO Levothyroxine Sodium (Synthroid Tab*) 88 mcg PO 0600 [facility] Last Admin: 09/27/16 06:43 Dose: 88 mcg Metoprolol Succinate (Toprol Xl Tab*) 25 mg PO QAM [facility] Last Admin: 09/27/16 08:44 Dose: 25 mg Omeprazole (Prilosec Cap*) 20 mg PO 0600 [facility] Last Admin: 09/27/16 06:43 Dose: 20 mg Ondansetron HCl (Zofran Inj*) 4 mg IV Q4H PRN PRN Reason: NAUSEA/VOMITING Oxycodone/Acetaminophen (Percocet 5/325 Tab*) 1 tab PO Q4H PRN PRN Reason: PAIN Last Admin: 09/27/16 11:54 Dose: 1 tab Tamsulosin HCl (Flomax Cap*) 0.4 mg PO QPM [facility] Last Admin: 09/26/16 18:05 Dose: 0.4 mg Vital Signs 09/26/16 09/26/16 09/26/16 15:00 15:33 16:00 Temperature 97.6 F Pulse Rate 81 84 Respiratory 18 20 Rate Blood Pressure (mmHg) O2 Sat by Pulse 98 94 Oximetry 09/26/16 09/26/16 09/26/16 17:00 18:00 18:09 Temperature Pulse Rate 78 80 85 Respiratory 20 20 23 Rate Blood Pressure (mmHg) O2 Sat by Pulse 95 96 95 Oximetry 09/26/16 09/26/16 09/26/16 19:00 20:00 21:00 Temperature 98.1 F Pulse Rate 89 72 Respiratory 20 23 22 Rate Blood Pressure 138/82 121/66 128/74 (mmHg) O2 Sat by Pulse 95 96 Oximetry 09/26/16 09/26/16 09/26/16 22:00 23:00 23:36 Temperature Pulse Rate 72 81 77 Respiratory 18 19 19 Rate Blood Pressure 98/54 128/77 (mmHg) O2 Sat by Pulse 95 94 95 Oximetry 09/26/16 09/27/16 09/27/16 23:55 00:00 00:01 Temperature 97.9 F Pulse Rate 80 80 Respiratory 12 18 Rate Blood Pressure 125/73 (mmHg) O2 Sat by Pulse 95 95 Oximetry 09/27/16 09/27/16 09/27/16 01:00 02:00 03:00 Temperature Pulse Rate 72 75 70 Respiratory 17 18 22 Rate Blood Pressure 101/56 140/76 123/73 (mmHg) O2 Sat by Pulse 96 95 95 Oximetry 09/27/16 09/27/16 09/27/16 03:51 04:00 05:00 Temperature 97.6 F Pulse Rate 65 71 Respiratory 14 22 Rate Blood Pressure 114/58 (mmHg) O2 Sat by Pulse 96 96 Oximetry 09/27/16 09/27/16 09/27/16 05:47 06:00 07:00 Temperature Pulse Rate 62 75 68 Respiratory 6 22 19 Rate Blood Pressure 139/80 136/77 137/51 (mmHg) O2 Sat by Pulse 98 97 95 Oximetry 09/27/16 09/27/16 09/27/16 07:38 08:00 09:00 Temperature 97.7 F Pulse Rate 66 69 Respiratory 15 19 Rate Blood Pressure 118/60 125/69 (mmHg) O2 Sat by Pulse 97 95 Oximetry 09/27/16 09/27/16 09/27/16 10:00 11:00 11:51 Temperature 98.0 F Pulse Rate 76 78 Respiratory 17 22 Rate Blood Pressure 101/59 (mmHg) O2 Sat by Pulse 94 94 Oximetry 09/27/16 09/27/16 12:00 13:00 Temperature Pulse Rate 82 78 Respiratory 24 24 Rate Blood Pressure 109/65 104/56 (mmHg) O2 Sat by Pulse 94 95 Oximetry Oxygen Devices in Use Now: Nasal Cannula - 94-97% on 2L Appearance: Elderly male sitting up in bed, NAD Eyes: No Scleral Icterus Ears/Nose/Mouth/Throat: Mucous Membranes Moist Respiratory: Symmetrical Chest Expansion and Respiratory Effort, - - L lung is clear, R fine crackles about 1/[address] up, chest tube exiting R lateral chest wall Cardiovascular: NL Sounds; No Murmurs; No JVD, RRR, No Edema Abdominal: NL Sounds; No Tenderness; No Distention Extremities: No Clubbing, Cyanosis Skin: No Rash or Ulcers, No Nodules or Sclerosis Neurological: Alert and Oriented x 3 Result Diagrams: 09/27/16 06:05 09/27/16 06:05 Microbiology and Other Data: Microbiology 09/26/16 09:00 Wound Gram Stain - Final Tissue Tissue Culture - Preliminary No Growth Day 1 09/26/16 11:49 Nasal Screen MRSA (PCR)(PA) - Final Nasal Mrsa Negative Assess/Plan/Problems-Billing Mr Beckett is an 85 yo M who has a h/o a recurrent blood pleural effusion on the right, afib, h/o bioprosthetic AVR, HTN, HLD, CKD, JOSE, CAD and hypothyroidism who was admitted to [facility] [place] following an elective VATS procedure for the recurrent bloody effusion. - Patient Problems (1) Recurrent pleural effusion on right Current Visit: Yes Status: Acute Code(s): J90 - PLEURAL EFFUSION, NOT ELSEWHERE CLASSIFIED SNOMED Code(s): 25200508 Comment: The patient is s/p VATS 09/26/16. He is doing well with the chest tube. He appears to have inflammatory/infiltrative change in the R lung. He was reportedly coughing quite a bit yesterday but no significant sputum. I have asked the patient to use the incentive spirometer and flutter valve routinely. Will also try mucinex. Managment of the chest tube per surgery. (2) Urinary retention due to benign prostatic hyperplasia Current Visit: Yes Status: Acute Code(s): N28.89 - OTHER SPECIFIED DISORDERS OF KIDNEY AND URETER; R33.8 - OTHER RETENTION OF URINE SNOMED Code(s ): 298394967 Comment: Last night the patient was having quite a bit of difficulty urinating and this sounds to be a common issue at home. A fenton was placed and it appears about 900ml was emptied. Will keep the fenton in place. Can possibly attempt voiding trial tomorrow however if he fails will need the fenton replaced and follow up with urology. (3) Atrial fibrillation Current Visit: Yes Status: Acute Code(s): I48.91 - UNSPECIFIED ATRIAL FIBRILLATION SNOMED Code(s): 15390934 Comment: HR is controlled on metoprolol XL 25mg daily. Continue to monitor. He is currently off coumadin but will need to discuss with pt/family and possibly PCP if he is to go back on coumadin. (4) HTN (hypertension) Current Visit: Yes Status: Chronic Code(s): I10 - ESSENTIAL (PRIMARY) HYPERTENSION SNOMED Code(s): 41468847 Comment: BP is low today. Will need to monitor closely as he remains on his metoprolol XL. (5) Hypothyroid Current Visit: Yes Status: Acute Code(s): E03.9 - HYPOTHYROIDISM, UNSPECIFIED SNOMED Code(s): 06562955 Comment: Continue current dose of synthroid. (6) DVT prophylaxis Current Visit: Yes Status: Acute Code(s): MDF4818 - SNOMED Code(s): 883404281 Comment: SQ heparin (7) DNR (do not resuscitate) Current Visit: Yes Status: Acute
[2016-09-27] MEDS: Atorvastatin* 10 MG TAB PO SCH (18:20)
[2016-09-27] MEDS: Tamsulosin CAP* 0.4 MG PO SCH (18:20)
[2016-09-27] MEDS: guaiFENesin ER TAB 600 MG PO SCH (19:57)
[2016-09-28] MEDS: Omeprazole CAP* 20 MG PO SCH (05:57)
[2016-09-28] MEDS: Heparin VIAL(*) 5000 UNITS/ML VIAL (FIVE THOUSAND) SUBCUT SCH ×3 (05:57→21:52)
[2016-09-28] MEDS: Levothyroxine TAB* 88 MCG TAB PO SCH (05:57)
[2016-09-28] MEDS: guaiFENesin ER TAB 600 MG PO SCH ×2 (08:06→20:54)
[2016-09-28] MEDS: Docusate CAP* 100 MG PO SCH ×2 (08:06→20:54)
[2016-09-28] MEDS: Metoprolol Succinate XL TAB* 25 MG PO SCH (08:06)
[2016-09-28] MEDS: oxyCODONE/Acetamin 5/325 MG* TAB PO PRN ×2 (08:06→20:29)
--- NOTE | 2016-09-28 09:11 | PN ---
Subjective Date of Service: 09/28/16 Interval History: Pt is feeling ok. He denies any SOB. Nursing states he is bringing up some sputum. He denies any pain at this time. Objective Active Medications: Acetaminophen (Tylenol Tab*) 650 mg PO Q4H PRN PRN Reason: Pain Or Temperature >101 F Atorvastatin Calcium (Lipitor*) 10 mg PO QPM [facility] Last Admin: 09/27/16 18:20 Dose: 10 mg Docusate Sodium (Colace Cap*) 100 mg PO BID [facility] Last Admin: 09/28/16 08:06 Dose: 100 mg Guaifenesin (Mucinex*) 600 mg PO BID [facility] Last Admin: 09/28/16 08:06 Dose: 600 mg Heparin Sodium (Porcine) (Heparin Vial(*)) 5,000 units SUBCUT Q8HR [facility] Last Admin: 09/28/16 05:57 Dose: 5,000 units Hydromorphone HCl (Dilaudid Iv*) 0.5 mg IV Q1H PRN PRN Reason: PAIN - SEVERE Lactated Ringer's (Lactated Ringers 1000 Ml Bag*) 1,000 mls @ 0 mls/hr IV .per rate [facility] PRN Reason: KVO Levothyroxine Sodium (Synthroid Tab*) 88 mcg PO 0600 [facility] Last Admin: 09/28/16 05:57 Dose: 88 mcg Metoprolol Succinate (Toprol Xl Tab*) 25 mg PO QAM [facility] Last Admin: 09/28/16 08:06 Dose: 25 mg Omeprazole (Prilosec Cap*) 20 mg PO 0600 [facility] Last Admin: 09/28/16 05:57 Dose: 20 mg Ondansetron HCl (Zofran Inj*) 4 mg IV Q4H PRN PRN Reason: NAUSEA/VOMITING Oxycodone/Acetaminophen (Percocet 5/325 Tab*) 1 tab PO Q4H PRN PRN Reason: PAIN Last Admin: 09/28/16 08:06 Dose: 1 tab Tamsulosin HCl (Flomax Cap*) 0.4 mg PO QPM [facility] Last Admin: 09/27/16 18:20 Dose: 0.4 mg Vital Signs 09/27/16 09/27/16 09/27/16 10:00 11:00 11:51 Temperature 98.0 F Pulse Rate 76 78 Respiratory 17 22 Rate Blood Pressure 101/59 (mmHg) O2 Sat by Pulse 94 94 Oximetry 09/27/16 09/27/16 09/27/16 12:00 13:00 14:00 Temperature Pulse Rate 82 78 109 Respiratory 24 24 21 Rate Blood Pressure 109/65 104/56 109/45 (mmHg) O2 Sat by Pulse 94 95 94 Oximetry 09/27/16 09/27/16 09/27/16 15:00 15:52 16:00 Temperature 97.7 F Pulse Rate 73 70 Respiratory 17 16 Rate Blood Pressure 91/63 95/55 (mmHg) O2 Sat by Pulse 95 95 Oximetry 09/27/16 09/27/16 09/27/16 16:30 17:00 17:11 Temperature 99.8 F Pulse Rate 69 Respiratory 24 Rate Blood Pressure 110/56 (mmHg) O2 Sat by Pulse 95 96 Oximetry 09/27/16 09/27/16 09/27/16 18:00 19:00 19:40 Temperature Pulse Rate 75 74 Respiratory 22 17 15 Rate Blood Pressure 100/52 (mmHg) O2 Sat by Pulse 95 94 Oximetry 09/27/16 09/27/16 09/27/16 19:51 20:00 21:00 Temperature 98.4 F Pulse Rate 66 71 Respiratory 20 15 Rate Blood Pressure 101/57 101/51 (mmHg) O2 Sat by Pulse 95 95 Oximetry 09/27/16 09/27/16 09/27/16 22:00 22:30 23:00 Temperature Pulse Rate 72 69 71 Respiratory 16 22 16 Rate Blood Pressure 99/57 111/59 (mmHg) O2 Sat by Pulse 95 97 95 Oximetry 09/27/16 09/28/16 09/28/16 23:58 00:00 00:01 Temperature 97.8 F Pulse Rate 72 71 Respiratory 16 16 Rate Blood Pressure 110/70 (mmHg) O2 Sat by Pulse 95 95 Oximetry 09/28/16 09/28/16 09/28/16 01:00 02:00 03:00 Temperature Pulse Rate 72 74 78 Respiratory 17 16 17 Rate Blood Pressure 128/66 117/53 116/59 (mmHg) O2 Sat by Pulse 94 93 93 Oximetry 09/28/16 09/28/16 09/28/16 03:34 03:48 04:00 Temperature 98.6 F Pulse Rate Respiratory 20 20 Rate Blood Pressure 129/63 (mmHg) O2 Sat by Pulse Oximetry 09/28/16 09/28/16 09/28/16 04:59 05:00 05:02 Temperature Pulse Rate 73 75 Respiratory 17 21 Rate Blood Pressure 128/74 (mmHg) O2 Sat by Pulse 95 95 Oximetry 09/28/16 09/28/16 06:00 07:43 Temperature 98.0 F Pulse Rate 75 Respiratory 18 Rate Blood Pressure 133/67 (mmHg) O2 Sat by Pulse 94 Oximetry Oxygen Devices in Use Now: Nasal Cannula - 94% Appearance: Elderly male sitting in a chair, NAD Eyes: No Scleral Icterus Ears/Nose/Mouth/Throat: Mucous Membranes Moist Respiratory: Symmetrical Chest Expansion and Respiratory Effort, Clear to Auscultation - less crackles R lung, chest tube exiting R lateral chest wall Cardiovascular: NL Sounds; No Murmurs; No JVD, No Edema, - - irregularly irregular Abdominal: NL Sounds; No Tenderness; No Distention Extremities: No Clubbing, Cyanosis Skin: No Rash or Ulcers, No Nodules or Sclerosis Neurological: Alert and Oriented x 3 Result Diagrams: 09/27/16 06:05 09/27/16 06:05 Microbiology and Other Data: Microbiology 09/26/16 09:00 Wound Gram Stain - Final Tissue Tissue Culture - Preliminary No Growth Day 1 09/26/16 11:49 Nasal Screen MRSA (PCR)(PA) - Final Nasal Mrsa Negative Assess/Plan/Problems-Billing Mr Beckett is an 85 yo M who has a h/o a recurrent blood pleural effusion on the right, afib, h/o bioprosthetic AVR, HTN, HLD, CKD, JOSE, CAD and hypothyroidism who was admitted to [facility] [place] following an elective VATS procedure for the recurrent bloody effusion. - Patient Problems (1) Recurrent pleural effusion on right Current Visit: Yes Status: Acute Code(s): J90 - PLEURAL EFFUSION, NOT ELSEWHERE CLASSIFIED SNOMED Code(s): 19747902 Comment: The patient is s/p VATS 09/26/16. Doing well in terms of pain. Removal of the chest tube per Dr. Kay. Will continue aggressive pulmonary toilet (incentive spirometry, flutter valve, deep breathing/coughing). Continue mucinex. (2) Urinary retention due to benign prostatic hyperplasia Current Visit: Yes Status: Acute Code(s): N28.89 - OTHER SPECIFIED DISORDERS OF KIDNEY AND URETER; R33.8 - OTHER RETENTION OF URINE SNOMED Code(s ): 961982373 Comment: Will attempt a voiding trial this AM. If he fails to urinate or if he has a post void residual >300 will replace the fenton. (3) Atrial fibrillation Current Visit: Yes Status: Acute Code(s): I48.91 - UNSPECIFIED ATRIAL FIBRILLATION SNOMED Code(s): 71528831 Comment: HR is controlled on metoprolol XL 25mg daily. Continue to monitor. He is currently off coumadin-was stopped for surgery. Will need to decide when to restart coumadin. (4) HTN (hypertension) Current Visit: Yes Status: Chronic Code(s): I10 - ESSENTIAL (PRIMARY) HYPERTENSION SNOMED Code(s): 57780145 Comment: BP improved today. Continue to monitor. (5) Hypothyroid Current Visit: Yes Status: Acute Code(s): E03.9 - HYPOTHYROIDISM, UNSPECIFIED SNOMED Code(s): 36644186 Comment: Continue current dose of synthroid. (6) DVT prophylaxis Current Visit: Yes Status: Acute Code(s): JXL6799 - SNOMED Code(s): 357126029 Comment: SQ heparin (7) DNR (do not resuscitate) Current Visit: Yes Status: Acute
[2016-09-28] MEDS: Atorvastatin* 10 MG TAB PO SCH (17:31)
[2016-09-28] MEDS: Tamsulosin CAP* 0.4 MG PO SCH (17:31)
[2016-09-29] MEDS: Acetaminophen TAB* 325 MG PO PRN ×4 (01:21→23:19)
[2016-09-29] MEDS: Heparin VIAL(*) 5000 UNITS/ML VIAL (FIVE THOUSAND) SUBCUT SCH ×3 (06:25→22:12)
[2016-09-29] MEDS: Levothyroxine TAB* 88 MCG TAB PO SCH (06:25)
[2016-09-29] MEDS: Omeprazole CAP* 20 MG PO SCH (06:25)
[2016-09-29] MEDS: Metoprolol Succinate XL TAB* 25 MG PO SCH (08:18)
[2016-09-29] MEDS: Docusate CAP* 100 MG PO SCH ×2 (08:18→20:28)
[2016-09-29] MEDS: guaiFENesin ER TAB 600 MG PO SCH ×2 (08:18→20:29)
--- NOTE | 2016-09-29 09:49 | PN ---
Subjective Date of Service: 09/29/16 Interval History: Pt is feeling well. He has mild abdominal discomfort in the upper abdomen. He thinks he has been having routine BMs. He denies any SOB. Objective Active Medications: Acetaminophen (Tylenol Tab*) 650 mg PO Q4H PRN PRN Reason: Pain Or Temperature >101 F Last Admin: 09/29/16 08:18 Dose: 650 mg Atorvastatin Calcium (Lipitor*) 10 mg PO QPM [facility] Last Admin: 09/28/16 17:31 Dose: 10 mg Docusate Sodium (Colace Cap*) 100 mg PO BID [facility] Last Admin: 09/29/16 08:18 Dose: 100 mg Guaifenesin (Mucinex*) 600 mg PO BID [facility] Last Admin: 09/29/16 08:18 Dose: 600 mg Heparin Sodium (Porcine) (Heparin Vial(*)) 5,000 units SUBCUT Q8HR [facility] Last Admin: 09/29/16 06:25 Dose: 5,000 units Hydromorphone HCl (Dilaudid Iv*) 0.5 mg IV Q1H PRN PRN Reason: PAIN - SEVERE Lactated Ringer's (Lactated Ringers 1000 Ml Bag*) 1,000 mls @ 0 mls/hr IV .per rate [facility] PRN Reason: KVO Levothyroxine Sodium (Synthroid Tab*) 88 mcg PO 0600 [facility] Last Admin: 09/29/16 06:25 Dose: 88 mcg Metoprolol Succinate (Toprol Xl Tab*) 25 mg PO QAM [facility] Last Admin: 09/29/16 08:18 Dose: 25 mg Omeprazole (Prilosec Cap*) 20 mg PO 0600 [facility] Last Admin: 09/29/16 06:25 Dose: 20 mg Ondansetron HCl (Zofran Inj*) 4 mg IV Q4H PRN PRN Reason: NAUSEA/VOMITING Oxycodone/Acetaminophen (Percocet 5/325 Tab*) 1 tab PO Q4H PRN PRN Reason: PAIN Last Admin: 09/28/16 20:29 Dose: 1 tab Tamsulosin HCl (Flomax Cap*) 0.4 mg PO QPM [facility] Last Admin: 09/28/16 17:31 Dose: 0.4 mg Vital Signs 09/28/16 09/28/16 09/28/16 10:00 10:05 11:48 Temperature 97.3 F Pulse Rate 74 73 68 Respiratory 13 14 20 Rate Blood Pressure 84/53 94/60 128/66 (mmHg) O2 Sat by Pulse 94 95 94 Oximetry 09/28/16 09/28/16 09/28/16 12:02 15:51 16:00 Temperature 97.3 F 98.0 F Pulse Rate 68 75 Respiratory 20 24 Rate Blood Pressure 128/66 120/64 (mmHg) O2 Sat by Pulse 94 93 93 Oximetry 09/28/16 09/28/16 09/28/16 19:02 20:29 21:00 Temperature 97.9 F Pulse Rate 85 Respiratory 16 16 Rate Blood Pressure 126/75 (mmHg) O2 Sat by Pulse 99 Oximetry 09/28/16 09/28/16 09/29/16 22:29 23:44 03:40 Temperature 97.4 F 97.4 F Pulse Rate 71 73 Respiratory 16 16 16 Rate Blood Pressure 127/66 152/78 (mmHg) O2 Sat by Pulse 92 96 Oximetry 09/29/16 08:22 Temperature 97.5 F Pulse Rate 67 Respiratory 18 Rate Blood Pressure 128/66 (mmHg) O2 Sat by Pulse 95 Oximetry Oxygen Devices in Use Now: Nasal Cannula - 95%-2L Appearance: Elderly male sitting in a chair, NAD Eyes: No Scleral Icterus Ears/Nose/Mouth/Throat: Mucous Membranes Moist Respiratory: Symmetrical Chest Expansion and Respiratory Effort, - - L lung clear, R upper lung clear, RML/RLL with a sucking sound but improved aeration of the lower R lung Cardiovascular: NL Sounds; No Murmurs; No JVD, No Edema, - - irregularly irregular Abdominal: - - BS+ soft, mildly distended, non tender to palpation Extremities: No Clubbing, Cyanosis Skin: No Rash or Ulcers, No Nodules or Sclerosis Neurological: Alert and Oriented x 3 Result Diagrams: 09/27/16 06:05 09/27/16 06:05 Microbiology and Other Data: Microbiology 09/26/16 09:00 Wound Gram Stain - Final Tissue Tissue Culture - Preliminary No Growth Day 1 09/26/16 11:49 Nasal Screen MRSA (PCR)(PA) - Final Nasal Mrsa Negative Assess/Plan/Problems-Billing Mr Beckett is an 85 yo M who has a h/o a recurrent blood pleural effusion on the right, afib, h/o bioprosthetic AVR, HTN, HLD, CKD, JOSE, CAD and hypothyroidism who was [place] [facility]ATS [place] for the recurrent bloody effusion. - Patient Problems (1) Recurrent pleural effusion on right Current Visit: Yes Status: Acute Code(s): J90 - PLEURAL EFFUSION, NOT ELSEWHERE CLASSIFIED SNOMED Code(s): 15599159 Comment: The patient is s/p VATS 09/26/16. Doing well in terms of pain. Removal of the chest tube per Dr. Kay. Will continue aggressive pulmonary toilet (incentive spirometry, flutter valve, deep breathing/coughing). Continue mucinex. Repeat CXR tomorrow. (2) Urinary retention due to benign prostatic hyperplasia Current Visit: Yes Status: Acute Code(s): N28.89 - OTHER SPECIFIED DISORDERS OF KIDNEY AND URETER; R33.8 - OTHER RETENTION OF URINE SNOMED Code(s ): 219308347 Comment: Pt without any signs of urinary retention. (3) Atrial fibrillation Current Visit: Yes Status: Acute Code(s): I48.91 - UNSPECIFIED ATRIAL FIBRILLATION SNOMED Code(s): 70324691 Comment: HR is controlled on metoprolol XL 25mg daily. Continue to monitor. He is currently off coumadin-was stopped for surgery. Will need to decide when to restart coumadin. (4) HTN (hypertension) Current Visit: Yes Status: Chronic Code(s): I10 - ESSENTIAL (PRIMARY) HYPERTENSION SNOMED Code(s): 84581966 Comment: BP under good control. Continue metoprolol XL. (5) Hypothyroid Current Visit: Yes Status: Acute Code(s): E03.9 - HYPOTHYROIDISM, UNSPECIFIED SNOMED Code(s): 63777757 Comment: Continue current dose of synthroid. (6) DVT prophylaxis Current Visit: Yes Status: Acute Code(s): XGH7528 - SNOMED Code(s): 166322617 Comment: SQ heparin (7) DNR (do not resuscitate) Current Visit: Yes Status: Acute
--- NOTE | 2016-09-29 09:53 | PN ---
Progress Note - Progress Note SOAP: Subjective: Pain is adequately controlled. Tolerating diet, +flatus. Objective: Vital Signs Temp 97.5 F 09/29/16 08:22 Pulse 67 09/29/16 08:22 Resp 18 09/29/16 08:22 BP 128/66 09/29/16 08:22 Pulse Ox 95 09/29/16 08:22 Intake & Output 09/28/16 09/29/16 09/29/16 18:59 06:59 18:59 Intake Total 1360 850 Output Total 375 1205 300 Balance 985 -355 -300 Intake: Oral 1360 850 Output: Chest Tube #1 25 155 Urine 100 1050 300 Arana 250 Other: Estimated Void Small # Voids 1 Lungs: bilat BS, clear on L. No wheeze/rhonchi. chest tube intact; intermittent 1 chamber A/L noted with cough. Microbiology 09/26/16 09:00 Wound Gram Stain - Final Tissue Tissue Culture - Preliminary No Growth Day 3 Assessment: POD#3 s/p VATS. Doing well. Plan: Keep CT. F/u CXR in am. Pulm toilet.
[2016-09-29] MEDS: Atorvastatin* 10 MG TAB PO SCH (17:12)
[2016-09-29] MEDS: Tamsulosin CAP* 0.4 MG PO SCH (17:12)
[2016-09-30] MEDS: Acetaminophen TAB* 325 MG PO PRN ×4 (04:16→21:47)
[2016-09-30] MEDS: Heparin VIAL(*) 5000 UNITS/ML VIAL (FIVE THOUSAND) SUBCUT SCH ×3 (05:53→21:47)
[2016-09-30] MEDS: Omeprazole CAP* 20 MG PO SCH (05:53)
[2016-09-30] MEDS: Levothyroxine TAB* 88 MCG TAB PO SCH (05:53)
[2016-09-30 06:43] LABS: Hematocrit 37 % (42-52); Hemoglobin 12.4 g/dl (14.0-18.0); Mean Corpuscular HGB Conc 33 g/dl (31-36); Mean Corpuscular Hemoglobin 29 pg (27-31); Mean Corpuscular Volume 86 fL (80-94); Mean Platelet Volume 8 um3 (7.4-10.4); Red Blood Count 4.32 10^6/ul (4.0-5.4); Red Cell Distribution Width 15 % (10.5-15); White Blood Count 7.6 10^3/ul (3.5-10.8)
[2016-09-30 07:00] LABS: BUN/Creatinine Ratio 17.2 (8-20); Calcium 8.5 mg/dL (8.6-10.3); EGFR African American 92.2 (>60); EGFR Non-African American 71.7 (>60); Potassium 3.9 mmol/L (3.5-5.0)
[2016-09-30] MEDS: Docusate CAP* 100 MG PO SCH ×2 (08:33→21:47)
[2016-09-30] MEDS: guaiFENesin ER TAB 600 MG PO SCH ×2 (08:33→21:47)
[2016-09-30] MEDS: Metoprolol Succinate XL TAB* 25 MG PO SCH (08:33)
[2016-09-30] MEDS ORDERED: Magnesium Hydroxide LIQ* 30 ML UDC PO ONE (09:10)
--- NOTE | 2016-09-30 10:56 | RAD ---
Indication: Right pleural effusion, right chest tube placement. 2 views of the chest are reviewed and compared to previous exam dated September 27, 2016. Right chest tube remains in place. Subcutaneous emphysema appears to BE improved since previous exam. Some atelectasis is noted. Pleural effusion has decreased. Pleural plaques are noted in the left mid to lower lung zone. IMPRESSION: Improved right basilar atelectasis. Calcified plaques are noted in the left lower lobe. Right chest tube remains in place.
[2016-09-30] MEDS: Tamsulosin CAP* 0.4 MG PO SCH (18:15)
[2016-09-30] MEDS: Atorvastatin* 10 MG TAB PO SCH (18:15)
[2016-10-01] MEDS: Acetaminophen TAB* 325 MG PO PRN ×2 (03:41→09:14)
[2016-10-01] MEDS: Levothyroxine TAB* 88 MCG TAB PO SCH (05:09)
[2016-10-01] MEDS: Omeprazole CAP* 20 MG PO SCH (05:09)
[2016-10-01] MEDS: Heparin VIAL(*) 5000 UNITS/ML VIAL (FIVE THOUSAND) SUBCUT SCH ×3 (05:10→21:39)
[2016-10-01] MEDS: oxyCODONE/Acetamin 5/325 MG* TAB PO PRN (08:58)
[2016-10-01] MEDS: Metoprolol Succinate XL TAB* 25 MG PO SCH (09:15)
[2016-10-01] MEDS: guaiFENesin ER TAB 600 MG PO SCH ×2 (09:17→21:39)
[2016-10-01] MEDS: Docusate CAP* 100 MG PO SCH ×2 (09:17→21:39)
--- NOTE | 2016-10-01 10:45 | CONSULT ---
Consultation - Reason for Consultation Reason for Consultation: mesothelioma Ordering Provider: Semaj Kay Chief Complaint: newly diagnosed mesothelioma History of Present Illness: 85 yo M with multiple medical problems with newly diagnosed malignant mesothelioma. Christopher has been suffering from worsening shortness of breath. He was referred to Dr. Dumont and had a thoracentesis in December of 2015. This was bloody at the time but nondiagnostic. He has had 2 repeat thoracenteses, both of which were nondiagnostic. His imaging however did show pleural plaques and thickening and so he was referred to Dr. Kay and admitted for a VATS biopsy with subsequent chest tube placement on September 26. Pathology from this has revealed malignant mesothelioma. We are being consulted regarding treatment/ prognosis. He reports other than his shortness of breath he is doing relatively well for himself. He is able to go shopping at times, and has meals essentially prepared for him. He lives mostly alone and sometimes with his girlfriend. He has very involved daughters. He denies weight loss. He does have some abdominal bloating but not pain. He has not had abdominal imaging for staging. 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 Allergies/Medications Medication: Acetaminophen (Tylenol Tab*) 650 mg PO Q4H PRN PRN Reason: Pain Or Temperature >101 F Last Admin: 10/01/16 09:14 Dose: 650 mg Atorvastatin Calcium (Lipitor*) 10 mg PO QPM [facility] Last Admin: 09/30/16 18:15 Dose: 10 mg Docusate Sodium (Colace Cap*) 100 mg PO BID [facility] Last Admin: 10/01/16 09:17 Dose: 100 mg Guaifenesin (Mucinex*) 600 mg PO BID [facility] Last Admin: 10/01/16 09:17 Dose: 600 mg Heparin Sodium (Porcine) (Heparin Vial(*)) 5,000 units SUBCUT Q8HR [facility] Last Admin: 10/01/16 05:10 Dose: 5,000 units Hydromorphone HCl (Dilaudid Iv*) 0.5 mg IV Q1H PRN PRN Reason: PAIN - SEVERE Lactated Ringer's (Lactated Ringers 1000 Ml Bag*) 1,000 mls @ 0 mls/hr IV .per rate [facility] PRN Reason: KVO Levothyroxine Sodium (Synthroid Tab*) 88 mcg PO 0600 [facility] Last Admin: 10/01/16 05:09 Dose: 88 mcg Metoprolol Succinate (Toprol Xl Tab*) 25 mg PO QAM [facility] Last Admin: 10/01/16 09:15 Dose: 25 mg Omeprazole (Prilosec Cap*) 20 mg PO 0600 [facility] Last Admin: 10/01/16 05:09 Dose: 20 mg Ondansetron HCl (Zofran Inj*) 4 mg IV Q4H PRN PRN Reason: NAUSEA/VOMITING Oxycodone/Acetaminophen (Percocet 5/325 Tab*) 1 tab PO Q4H PRN PRN Reason: PAIN Last Admin: 09/28/16 20:29 Dose: 1 tab Tamsulosin HCl (Flomax Cap*) 0.4 mg PO QPM [facility] Last Admin: 09/30/16 18:15 Dose: 0.4 mg Allergies/Adverse Reactions: Allergies Allergy/AdvReac Type Severity Reaction Status Date / Time Lisinopril Allergy Unknown See Comment Verified 09/26/16 06:32 Hydrocodone AdvReac Severe Hallucinati Verified 09/26/16 10:58 ons Aspirin AdvReac Intermediate GI Upset Verified 09/26/16 10:58 History - Past Medical History Other History: CAD. CKD. HTN. afib/aflutter. bioprosthetic aortic valve. JOSE on CPAP. macular degeneration. cataract surgery. appendectomy. hydrocelectomy - Family History Other Family History: noncontributory - Social History Other Social History: lives alone, prior factory work Physical Exam - Physical Exam Physical Examination: Vital Signs Temp Pulse Resp BP Pulse Ox 97.6 F 68 16 140/66 95 10/01/16 08:07 10/01/16 08:07 10/01/16 08:07 10/01/16 08:07 10/01/16 08:07 somewhat frail elderly male sitting up in nad perr eomi op dry dec bs right base s1 s2 regular soft nt +_bs no le edema A+O x 3, grossly nonfocal Results - Lab Results Lab Results: 09/30/16 09/30/16 06:22 06:22 WBC 7.6 RBC 4.32 Hgb 12.4 L Hct 37 L MCV 86 MCH 29 MCHC 33 RDW 15 Plt Count 260 MPV 8 Sodium 135 Potassium 3.9 Chloride 102 Carbon Dioxide 25 Anion Gap 8 BUN 17 Creatinine 0.99 Est GFR ( Amer) 92.2 Est GFR (Non-Af Amer) 71.7 BUN/Creatinine Ratio 17.2 Glucose 95 Calcium 8.5 L Assessment and Plan Impression: 85 yo M w newly diagnosed malignant mesothelioma. We discussed this diagnosis at length. We reviewed that under best case scenarios this is a very aggressive and difficult cancer to treat. He is not a surgical candidate and has a borderline performance status. Taking this and his age into consideration I have recommended palliative measures only, in particular hospice. He and his daughters agree. At this point he is functioning relatively independently and would like to remain at home until he needs to consider moving into the hospice residence. I would be happy to follow his care on hospice. I will discuss with Dr. Sauceda and have discussed with Dr. Kay. Given his overall prognosis I do think it would be reasonable to stop his coumadin to simplify his drug regimen. Thank you for this consult and we will continue to follow with you.
--- NOTE | 2016-10-01 16:44 | PN ---
Subjective Date of Service: 10/01/16 Interval History: Pt is feeling fine. He denies any pain at this time. He walked 3x around the unit yesterday but not much walking today. Objective Active Medications: Acetaminophen (Tylenol Tab*) 650 mg PO Q4H PRN PRN Reason: Pain Or Temperature >101 F Last Admin: 10/01/16 09:14 Dose: 650 mg Atorvastatin Calcium (Lipitor*) 10 mg PO QPM [facility] Last Admin: 09/30/16 18:15 Dose: 10 mg Docusate Sodium (Colace Cap*) 100 mg PO BID [facility] Last Admin: 10/01/16 09:17 Dose: 100 mg Guaifenesin (Mucinex*) 600 mg PO BID [facility] Last Admin: 10/01/16 09:17 Dose: 600 mg Heparin Sodium (Porcine) (Heparin Vial(*)) 5,000 units SUBCUT Q8HR [facility] Last Admin: 10/01/16 14:59 Dose: 5,000 units Hydromorphone HCl (Dilaudid Iv*) 0.5 mg IV Q1H PRN PRN Reason: PAIN - SEVERE Lactated Ringer's (Lactated Ringers 1000 Ml Bag*) 1,000 mls @ 0 mls/hr IV .per rate [facility] PRN Reason: KVO Levothyroxine Sodium (Synthroid Tab*) 88 mcg PO 0600 [facility] Last Admin: 10/01/16 05:09 Dose: 88 mcg Metoprolol Succinate (Toprol Xl Tab*) 25 mg PO QAM [facility] Last Admin: 10/01/16 09:15 Dose: 25 mg Omeprazole (Prilosec Cap*) 20 mg PO 0600 [facility] Last Admin: 10/01/16 05:09 Dose: 20 mg Ondansetron HCl (Zofran Inj*) 4 mg IV Q4H PRN PRN Reason: NAUSEA/VOMITING Oxycodone/Acetaminophen (Percocet 5/325 Tab*) 1 tab PO Q4H PRN PRN Reason: PAIN Last Admin: 09/28/16 20:29 Dose: 1 tab Tamsulosin HCl (Flomax Cap*) 0.4 mg PO QPM [facility] Last Admin: 09/30/16 18:15 Dose: 0.4 mg Vital Signs 09/30/16 09/30/16 09/30/16 17:11 19:41 20:38 Temperature 98.2 F Pulse Rate 81 Respiratory 18 16 Rate Blood Pressure 120/59 (mmHg) O2 Sat by Pulse 94 94 Oximetry 09/30/16 10/01/16 10/01/16 23:39 03:28 08:00 Temperature 97.7 F 97.6 F Pulse Rate 70 75 Respiratory 16 18 16 Rate Blood Pressure 124/65 123/73 (mmHg) O2 Sat by Pulse 96 96 96 Oximetry 10/01/16 10/01/16 10/01/16 08:07 11:23 16:00 Temperature 97.6 F 98.3 F 97.9 F Pulse Rate 68 81 80 Respiratory 16 16 20 Rate Blood Pressure 140/66 120/56 122/67 (mmHg) O2 Sat by Pulse 95 93 97 Oximetry Oxygen Devices in Use Now: None - 97% Appearance: Elderly male sitting in a chair, NAD Eyes: No Scleral Icterus Ears/Nose/Mouth/Throat: Mucous Membranes Moist Respiratory: Symmetrical Chest Expansion and Respiratory Effort, - - improved breath sounds at the R base Cardiovascular: NL Sounds; No Murmurs; No JVD, RRR, No Edema Abdominal: NL Sounds; No Tenderness; No Distention Extremities: No Clubbing, Cyanosis Skin: No Rash or Ulcers, No Nodules or Sclerosis Neurological: Alert and Oriented x 3 Result Diagrams: 09/30/16 06:22 09/30/16 06:22 Microbiology and Other Data: Microbiology 09/26/16 09:00 Wound Gram Stain - Final Tissue Tissue Culture - Preliminary No Growth Day 1 09/26/16 11:49 Nasal Screen MRSA (PCR)(PA) - Final Nasal Mrsa Negative Assess/Plan/Problems-Billing Mr Beckett is an 85 yo M who has a h/o a recurrent blood pleural effusion on the right, afib, h/o bioprosthetic AVR, HTN, HLD, CKD, JOSE, CAD and hypothyroidism who was admitted to [facility] [place] following an elective VATS procedure for the recurrent bloody effusion. - Patient Problems (1) Mesothelioma Current Visit: Yes Status: Acute Code(s): C45.9 - MESOTHELIOMA, UNSPECIFIED SNOMED Code(s): 627144717 Comment: Path from the VATS + for mesothelioma. Dr. Isaacs has recommended hospice and the patient and his daughters agree. Hospice consult is pending. (2) Recurrent pleural effusion on right Current Visit: Yes Status: Acute Code(s): J90 - PLEURAL EFFUSION, NOT ELSEWHERE CLASSIFIED SNOMED Code(s): 68417896 Comment: The patient is s/p VATS 09/26/16. Doing well in terms of pain. Removal of the chest tube per Dr. Kay. Will continue aggressive pulmonary toilet. CXR 09/30/16 shows improvement in his atelectasis. (3) Urinary retention due to benign prostatic hyperplasia Current Visit: Yes Status: Acute Code(s): N28.89 - OTHER SPECIFIED DISORDERS OF KIDNEY AND URETER; R33.8 - OTHER RETENTION OF URINE SNOMED Code(s ): 080322037 Comment: Pt without any signs of urinary retention. (4) Atrial fibrillation Current Visit: Yes Status: Acute Code(s): I48.91 - UNSPECIFIED ATRIAL FIBRILLATION SNOMED Code(s): 61108129 Comment: HR is controlled on metoprolol XL 25mg daily. Continue to monitor. He is currently off coumadin-was recommended to keep the patient off coumadin moving forward given his new dx of mesothelioma. (5) HTN (hypertension) Current Visit: Yes Status: Chronic Code(s): I10 - ESSENTIAL (PRIMARY) HYPERTENSION SNOMED Code(s): 69259064 Comment: BP under good control. Continue metoprolol XL. (6) Hypothyroid Current Visit: Yes Status: Acute Code(s): E03.9 - HYPOTHYROIDISM, UNSPECIFIED SNOMED Code(s): 97527968 Comment: Continue current dose of synthroid. (7) DVT prophylaxis Current Visit: Yes Status: Acute Code(s): YRK6963 - SNOMED Code(s): 507579509 Comment: SQ heparin (8) DNR (do not resuscitate) Current Visit: Yes Status: Acute Status and Disposition: Will sign off-please call with any further questions.
--- NOTE | 2016-10-01 18:10 | CONSULT ---
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 Kay for VATS with biopsies and placement of a chest tube for chronic recurrent pleural effusions and associated pleural plaques and nodular thickening. He had had 3 thoraenteses since Spring 2015, with benign cytology each time. However, pathology on the plaque material resected 09/26/16 revealed malignant mesothelioma. Although the patient has had progressively debiitating dyspnea on exertion, he has not lost weight, and has had a reasonable performance status. He was seen by Dr. Isaacs and deemed unsuitable as a surgical candidate and was recommended to consider the Medicare Hospice benefit. Lab Values: Laboratory Last Values WBC 7.6 10^3/ul (3.5-10.8) 09/30/16 06:22 RBC 4.32 10^6/ul (4.0-5.4) 09/30/16 06:22 Hgb 12.4 g/dl (14.0-18.0) L 09/30/16 06:22 Hct 37 % (42-52) L 09/30/16 06:22 MCV 86 fL (80-94) 09/30/16 06:22 MCH 29 pg (27-31) 09/30/16 06:22 MCHC 33 g/dl (31-36) 09/30/16 06:22 RDW 15 % (10.5-15) 09/30/16 06:22 Plt Count 260 10^3/ul (150-450) 09/30/16 06:22 MPV 8 um3 (7.4-10.4) 09/30/16 06:22 Neut % (Auto) 59.7 % (38-83) 09/27/16 06:05 Lymph % (Auto) 22.0 % (25-47) L 09/27/16 06:05 [place] % (Auto) 16.6 % (1-9) H 09/27/16 06:05 Eos % (Auto) 0.8 % (0-6) 09/27/16 06:05 Baso % (Auto) 0.9 % (0-2) 09/27/16 06:05 Absolute Neuts (auto) 4.2 10^3/ul (1.5-7.7) 09/27/16 06:05 Absolute Lymphs (auto) 1.6 10^3/ul (1.0-4.8) 09/27/16 06:05 Absolute Monos (auto) 1.2 10^3/ul (0-0.8) H 09/27/16 06:05 Absolute Eos (auto) 0.1 10^3/ul (0-0.6) 09/27/16 06:05 Absolute Basos (auto) 0.1 10^3/ul (0-0.2) 09/27/16 06:05 Absolute Nucleated RBC 0.01 10^3/ul 09/27/16 06:05 Nucleated RBC % 0.1 09/27/16 06:05 Sodium 135 mmol/L (133-145) 09/30/16 06:22 Potassium 3.9 mmol/L (3.5-5.0) 09/30/16 06:22 Chloride 102 mmol/L (101-111) 09/30/16 06:22 Carbon Dioxide 25 mmol/L (22-32) 09/30/16 06:22 Anion Gap 8 mmol/L (2-11) 09/30/16 06:22 BUN 17 mg/dL (6-24) 09/30/16 06:22 Creatinine 0.99 mg/dL (0.67-1.17) 09/30/16 06:22 Est GFR ( Amer) 92.2 (>60) 09/30/16 06:22 Est GFR (Non-Af Amer) 71.7 (>60) 09/30/16 06:22 BUN/Creatinine Ratio 17.2 (8-20) 09/30/16 06:22 Glucose 95 mg/dL (70-100) 09/30/16 06:22 Calcium 8.5 mg/dL (8.6-10.3) L 09/30/16 06:22 - Objective Active Medications: Acetaminophen (Tylenol Tab*) 650 mg PO Q4H PRN PRN Reason: Pain Or Temperature >101 F Last Admin: 10/01/16 09:14 Dose: 650 mg Atorvastatin Calcium (Lipitor*) 10 mg PO QPM [facility] Last Admin: 09/30/16 18:15 Dose: 10 mg Docusate Sodium (Colace Cap*) 100 mg PO BID [facility] Last Admin: 10/01/16 09:17 Dose: 100 mg Guaifenesin (Mucinex*) 600 mg PO BID [facility] Last Admin: 10/01/16 09:17 Dose: 600 mg Heparin Sodium (Porcine) (Heparin Vial(*)) 5,000 units SUBCUT Q8HR [facility] Last Admin: 10/01/16 14:59 Dose: 5,000 units Hydromorphone HCl (Dilaudid Iv*) 0.5 mg IV Q1H PRN PRN Reason: PAIN - SEVERE Lactated Ringer's (Lactated Ringers 1000 Ml Bag*) 1,000 mls @ 0 mls/hr IV .per rate [facility] PRN Reason: KVO Levothyroxine Sodium (Synthroid Tab*) 88 mcg PO 0600 [facility] Last Admin: 10/01/16 05:09 Dose: 88 mcg Metoprolol Succinate (Toprol Xl Tab*) 25 mg PO QAM [facility] Last Admin: 10/01/16 09:15 Dose: 25 mg Omeprazole (Prilosec Cap*) 20 mg PO 0600 [facility] Last Admin: 10/01/16 05:09 Dose: 20 mg Ondansetron HCl (Zofran Inj*) 4 mg IV Q4H PRN PRN Reason: NAUSEA/VOMITING Oxycodone/Acetaminophen (Percocet 5/325 Tab*) 1 tab PO Q4H PRN PRN Reason: PAIN Last Admin: 09/28/16 20:29 Dose: 1 tab Tamsulosin HCl (Flomax Cap*) 0.4 mg PO QPM [facility] Last Admin: 09/30/16 18:15 Dose: 0.4 mg Vital Signs: Vital Signs: Temp Pulse Resp BP Pulse Ox 97.9 F 80 20 122/67 97 10/01/16 16:00 10/01/16 16:00 10/01/16 16:00 10/01/16 16:00 10/01/16 16:00 Patient Weight: Weight 178 lb 5.663 oz Intake and Output: Intake & Output 01/09/30/16 10/01/16 10/02/16 06:59 06:59 06:59 06:59 Intake Total 2210 1090 1290 320 Output Total 1580 1845 1565 1005 Balance 487 -636 -275 -594 Intake: IV Fluids 0 LR 0 Oral 2210 1090 1290 320 Output: Chest Tube #1 180 270 90 80 Chest Tube #2 50 Urine 1150 1575 1425 925 Arana 250 Other: Estimated Void Small Date of Last Bowel 09/30/16 Movement # Bowel Movements 2 1 Estimated Stool Amount Medium Medium # Voids 1 ADLs: Meal Record Start: 09/26/16 11: 10 Freq: 09,13,18 Status: Complete Created 09/26/16 11:10 [id number] (Rec: 09/26/16 11:10 [id number] ICU-M15) Document 09/26/16 13:00 [id number] (Rec: 09/26/16 13:20 BLV7074 ICU-C25) Document 09/26/16 18:00 IPJ1114 (Rec: 09/26/16 19:00 TXB1106 ICU-C25) Document 09/27/16 09:00 PMD7846 (Rec: 09/27/16 10:14 THQ2872 ICU-C20) Document 09/27/16 13:00 TLU1968 (Rec: 09/27/16 14:38 QVL3330 ICU-C15) Document 09/27/16 18:00 JRJ1691 (Rec: 09/27/16 18:37 FDX2315 ICU-C15) Document 09/28/16 09:00 IJN7479 (Rec: 09/28/16 09:43 JER1331 ICU-C15) ADLs: Meal Record Start: 09/28/16 11: 07 Freq: DAILY@0900,1400,1800 Status: Inactive Created 09/28/16 11:07 JPJ5038 (Rec: 09/28/16 11:07 NTO9554 ICU-C15) Document 09/28/16 14:00 AHN6496 (Rec: 09/28/16 15:36 LYN5332 SSU-C05) Document 09/28/16 18:00 XYC2078 (Rec: 09/28/16 18:45 VDQ6219 SSU-C05) ADLs: Meal Record Start: 09/28/16 15: 41 Freq: Status: Active Created 09/28/16 15:41 FKE3920 (Rec: 09/28/16 15:41 JEP9546 SSU-C10) Document 09/29/16 08:00 IWC1996 (Rec: 09/29/16 15:28 MGM5179 SSU-C09) Document 09/29/16 15:15 OIO6875 (Rec: 09/29/16 15:29 BFH1823 SSU-C09) Document 09/29/16 18:40 FPL7474 (Rec: 09/29/16 18:41 NLT0805 SSU-C19) Document 09/30/16 10:48 ISJ7466 (Rec: 09/30/16 10:48 BAB9185 SSU-C11) Document 09/30/16 21:49 ZFX5375 (Rec: 09/30/16 21:49 YVB8307 SSU-C19) Document 10/01/16 14:14 KFG0912 (Rec: 10/01/16 14:15 RYM4641 SSU-M12) Intake and Output Start: 09/26/16 11: 10 Freq: 06,14,22 Status: Complete Created 09/26/16 11:10 RIE3256 (Rec: 09/26/16 11:10 JVC6969 ICU-M15) Document 09/26/16 15:12 VOK4190 (Rec: 09/26/16 15:12 HJK2616 ICU-C23) Document 09/26/16 15:47 PMF0319 (Rec: 09/26/16 15:47 PBH4726 ICU-C25) Document 09/26/16 18:59 SBW2042 (Rec: 09/26/16 19:00 XKS4224 ICU-C25) Document 09/26/16 22:00 ATU4308 (Rec: 09/27/16 01:27 MME4141 ICU-C15) Document 09/27/16 06:00 ZLI1495 (Rec: 09/27/16 06:55 EHQ9369 ICU-M15) Document 09/27/16 06:56 QHM3376 (Rec: 09/27/16 06:59 KQF0429 ICU-M15) Document 09/27/16 10:40 PDH1275 (Rec: 09/27/16 10:40 YDV4351 ICU-C15) Document 09/27/16 14:00 UZM2022 (Rec: 09/27/16 14:28 DML1572 ICU-M15) Document 09/27/16 14:38 FOW7755 (Rec: 09/27/16 14:38 ITJ1440 ICU-C20) Document 09/27/16 21:02 VFY8106 (Rec: 09/27/16 21:02 AAU6938 ICU-C15) Document 09/28/16 05:45 RRT8478 (Rec: 09/28/16 05:46 YUA2620 ICU-M06) Document 09/28/16 05:46 HLM5732 (Rec: 09/28/16 05:46 ARH9746 ICU-C14) Intake and Output Start: 09/28/16 11: 07 Freq: DAILY@0600,1400,2200 Status: Complete Created 09/28/16 11:07 ZLU7712 (Rec: 09/28/16 11:07 OZT1507 ICU-C15) Document 09/28/16 14:00 LYU8618 (Rec: 09/28/16 15:36 TMH3856 SSU-C05) Document 09/28/16 18:10 QHE4552 (Rec: 09/28/16 18:12 MBR8850 SSU-M03) Document 09/28/16 18:33 NWX5540 (Rec: 09/28/16 18:33 MRT2499 SSU-M03) Document 09/28/16 22:22 XGT4704 (Rec: 09/28/16 22:25 LLI3745 SSU-C11) Document 09/28/16 23:21 GWQ2224 (Rec: 09/28/16 23:22 RZZ3540 SSU-C11) Document 09/29/16 01:13 PWF0942 (Rec: 09/29/16 01:13 CWM9166 SSU-C12) Document 09/29/16 03:40 KVK8675 (Rec: 09/29/16 06:11 XQA9331 SSU-C08) Document 09/29/16 06:00 MSL1675 (Rec: 09/29/16 06:10 YCE2852 SSU-C08) Document 09/29/16 14:25 CGR3768 (Rec: 09/29/16 14:25 XTE4564 SSU-M11) Document 09/29/16 15:15 QKX4727 (Rec: 09/29/16 15:29 RKD9499 SSU-C09) Document 09/29/16 16:59 ZDW2443 (Rec: 09/29/16 18:05 FKE6470 SSU-C19) Document 09/29/16 18:05 GJU3975 (Rec: 09/29/16 18:06 ANB5118 SSU-C19) Document 09/29/16 22:00 RXR8430 (Rec: 09/29/16 22:40 VSE7305 SSU-C05) Document 09/29/16 22:00 IUW1778 (Rec: 09/29/16 22:57 VEF1255 SSU-C19) Document 09/29/16 22:40 OIA4942 (Rec: 09/29/16 22:41 TJV2821 SSU-C05) Document 09/30/16 00:41 FHB6328 (Rec: 09/30/16 00:41 SSH7405 SSU-C05) Document 09/30/16 02:06 AKZ8124 (Rec: 09/30/16 02:06 ZNK7087 SSU-C05) Document 09/30/16 04:23 PPE6504 (Rec: 09/30/16 04:23 YFA9267 ICU-M18) Document 09/30/16 05:34 TYY7281 (Rec: 09/30/16 05:34 WMJ8641 SSU-C04) Document 09/30/16 05:45 ONE8697 (Rec: 09/30/16 05:45 CUX2197 SSU-C04) Document 09/30/16 13:55 JKU6059 (Rec: 09/30/16 13:56 MAX8483 SSU-C10) Document 09/30/16 22:00 CRT1035 (Rec: 09/30/16 22:58 DAK9191 SSU-C19) Document 09/30/16 23:43 PNH8932 (Rec: 09/30/16 23:43 ACU6501 SSU-C05) Document 10/01/16 03:42 VGN8820 (Rec: 10/01/16 03:42 QAU8720 SSU-M11) Document 10/01/16 04:50 OAD5573 (Rec: 10/01/16 04:50 FVR4352 SSU-C05) Document 10/01/16 05:31 UCL0402 (Rec: 10/01/16 05:31 RBO6813 SSU-C04) Document 10/01/16 06:43 GZO5015 (Rec: 10/01/16 06:43 NPZ1216 SSU-C05) Document 10/01/16 09:02 EVX6190 (Rec: 10/01/16 09:02 UMQ8952 SSU-C11) Document 10/01/16 09:19 VOX3483 (Rec: 10/01/16 09:20 KNX9377 SSU-C01) Intake and Output Start: 09/28/16 15: 41 Freq: DAILY@0600,1400,2200 Status: Active Created 09/28/16 15:41 ACW3047 (Rec: 09/28/16 15:41 SSU-C10) Document 10/01/16 14:46 EES7105 (Rec: 10/01/16 14:46 ERL5695 SSU-C03) Head: Symmetrical Eyes: No Scleral Icterus Ears/Nose/Mouth/Throat: Clear Oropharnyx, Mucous Membranes Moist Cardiovascular: NL Sounds; No Murmurs; No JVD, RRR, No Edema Respiratory: Symmetrical Chest Expansion and Respiratory Effort Abdominal: NL Sounds; No Tenderness; No Distention Extremities: No Clubbing, Cyanosis Neurological: Alert and Oriented x 3 - Assessment Assessment: This patient meets criteria for home hospice services on the basis of his malignant mesothelioma. His prognosis is under 6 months. I have completed the MOLST form with him to reflect his wishes for comfort measures only, and I have spoken at length with him and his two daughters, Sylwia and Jessica. They want to speak with other family members, and would like a hospice informational and will call Mansi at [facility] to arrange for that visit. The patient wouldlike to remain at home as long as possible. His daughters expressed dismay at the room and board costs at the [facility] residence and at nursing homes. He can be expected to be cared for at home as long as he is ambulatory. Thank you for the consultation request. - Plan Consult Plan (MU): Hospice - Time On Unit Date of Evaluation: 10/01/16 Hospice Consult Time in: 17:00 Hospice Consult Time Out: 18:15 Hospice Consult Time Total: 75 > 50% of Time Spend In Counseling or Coordinating Care: Yes
[2016-10-01] MEDS: Atorvastatin* 10 MG TAB PO SCH (18:27)
[2016-10-01] MEDS: Tamsulosin CAP* 0.4 MG PO SCH (18:27)
[2016-10-02] MEDS: Levothyroxine TAB* 88 MCG TAB PO SCH (05:20)
[2016-10-02] MEDS: Omeprazole CAP* 20 MG PO SCH (05:21)
[2016-10-02] MEDS: Heparin VIAL(*) 5000 UNITS/ML VIAL (FIVE THOUSAND) SUBCUT SCH (05:21)
[2016-10-02] MEDS: Docusate CAP* 100 MG PO SCH (08:36)
[2016-10-02] MEDS: Metoprolol Succinate XL TAB* 25 MG PO SCH (08:36)
[2016-10-02] MEDS: guaiFENesin ER TAB 600 MG PO SCH (08:36)
[2016-10-02] MEDS: Acetaminophen TAB* 325 MG PO PRN (08:38)
--- NOTE | 2016-10-02 10:34 | RAD ---
HISTORY: Follow-up chest tube placement COMPARISONS: September 30, 2016 VIEWS: 2: Frontal and lateral views of the chest. FINDINGS: CARDIOMEDIASTINAL SILHOUETTE: The cardiac silhouette is enlarged. The cardiomediastinal silhouette is otherwise normal. CURT: The curt are normal. PLEURA: There are calcified pleural plaques. LUNG PARENCHYMA: There is minimal persistent patchy right basilar alveolar opacification. ABDOMEN: The upper abdomen is clear. There is no subphrenic gas. BONES AND SOFT TISSUES: The patient is status post median sternotomy. OTHER: A prosthetic heart valve is noted. A right-sided chest tube is noted. IMPRESSION: LINES AND TUBES ABOVE. MINIMAL PERSISTENT RIGHT BASILAR ATELECTASIS. CARDIOMEGALY.
[2016-10-02 12:27] VITALS: BP 123/61
--- NOTE | 2016-10-03 03:32 | DS ---
DISCHARGE SUMMARY: DATE OF ADMISSION: 09/26/16 DATE OF DISCHARGE: 10/02/16 PRINCIPAL ADMITTING DIAGNOSIS: Chronic right pleural effusion, ultimately proving to be mesothelioma. SECONDARY DIAGNOSES: Include: 1. Hypertension. 2. Atrial fibrillation. 3. Hyperlipidemia. 4. Chronic kidney disease. 5. Coronary artery disease. 6. Aortic valvular disease. 7. Obstructive sleep apnea. OPERATIONS ON THIS ADMISSION: Right videothoracoscopy. HOSPITAL COURSE: The patient is an 85-year-old male who came to the hospital and was taken to the operating room on 09/26/16 for right videothoracoscopy. He had chronic effusion and pleural based nodules. This was cultured and biopsies were taken. A chest tube was left in place. He was managed in intensive care unit for the first couple of days and then transferred to the surgical floor. He had gradual improvement in pain control, appetite, ambulation, urination, and bowel function. He did suffer urinary retention and need reinsertion of a Arana catheter, but after few days, that was removed and he was doing well thereafter. He did require oxygen early on, but also that was gradually able to be weaned and he tolerated that well. His chest tube was ultimately removed when he had adequate decrease in drainage and resolution of air leak. His pathology did show mesothelioma. He was seen in consultation by Dr. Isaacs of Oncology and it was recommended that he be seen in hospice consultation and was seen by Dr. Margaret Pereira as well. At the time of discharge, the chest tube had been removed. He was able to get out of bed independently. He was having bowel movements. He was urinating. He was tolerating oral intake. His pain control was good without any narcotic medications. He will be discharged home with his daughters and will follow up with hospice in the near future. CC: Semaj Kay MD; Pedro Sauceda MD; Hanane Jacobo MD; Rimma Isaacs MD; Renae Dumont MD; Margaret Pereira MD * [id number]/[facility] #: [id number] MTDD
== END 2016-10-02 15:25 | disposition home or self-care (01) | DRG 167 ==
LOC: AA 05:59 → ICU 09:47 → SSU 09-28 09:30
PROVIDERS: ADMIT Surgery; ATTEND Surgery
PROC: 0W9930Z Drainage of Right Pleural Cavity with Drainage Device, Percutaneous Approach (ICD-10-PCS; 2016-09-26)
PROC: 0BBN4ZX Excision of Right Pleura, Percutaneous Endoscopic Approach, Diagnostic (ICD-10-PCS; principal; 2016-09-26 07:45)
DX: C45.0 Mesothelioma of pleura (principal); J91.0 Malignant pleural effusion; I48.0 Paroxysmal atrial fibrillation; N18.9 Chronic kidney disease, unspecified; I12.9 Hypertensive chronic kidney disease with stage 1 through stage 4 chronic kidney disease, or unspecified chronic kidney disease; I25.10 Atherosclerotic heart disease of native coronary artery without angina pectoris; Z95.2 Presence of prosthetic heart valve; G47.33 Obstructive sleep apnea (adult) (pediatric); H35.30 Unspecified macular degeneration; Z98.42 Cataract extraction status, left eye; Z98.41 Cataract extraction status, right eye; Z88.6 Allergy status to analgesic agent; Z88.5 Allergy status to narcotic agent; Z88.8 Allergy status to other drugs, medicaments and biological substances; E78.5 Hyperlipidemia, unspecified; E03.9 Hypothyroidism, unspecified; N40.1 Benign prostatic hyperplasia with lower urinary tract symptoms; R33.8 Other retention of urine; Z66 Do not resuscitate; Z51.5 Encounter for palliative care
CPT/HCPCS: 36415; 71010; 71020; 80048; 85025; 85027; 87070; 87205; 87641; 88305; 88313; 88341; 88342; 94660; 94760; 99223; 99233; A9270-GY; J0690; J1100; J1644; J2001; J2250; J2405; J2704; J3010; J3490